=== PATIENT | female | born 1940 | race Caucasian/White ===

== ENCOUNTER 2020-04-12 08:37 | Outpatient (CLI) | payer MEDICARE, SELFPAY ==
[2020-04-12 09:14] LABS: Hematocrit 32.9 % (37.0-47.0); Hemoglobin 9.8 g/dL (12.0-15.0)
[2020-04-12 09:17] LABS: Alanine Aminotransferase 15 U/L (4-35); Albumin Level 3.7 g/dL (3.5-5.1); Alkaline Phosphatase 85 U/L (38-126); Anion Gap 9.8 mmol/L (7-16); Aspartate Amino Transferase 23 U/L (14-36); Bilirubin,Total 0.4 mg/dL (0.2-1.3); Blood Urea Nitrogen 19 mg/dL (7-17); Calcium 8.8 mg/dL (8.4-10.2); Carbon Dioxide 29 mmol/L (22-30); Chloride 106 mmol/L (98-107); Cholesterol 131 mg/dL (0-200); Estimated Glomerular Filt Rate > 60; Glucose 95 mg/dL (65-105); HDL Direct 44 mg/dL; Potassium 3.8 mmol/L (3.4-5.0); Sodium 141 mmol/L (137-145); Triglycerides 76 mg/dL (<150)
[2020-04-12 09:28] LABS: LDL Cholesterol Direct 71 mg/dL
[2020-04-12 09:47] LABS: Thyroid Stimulating Hormone 0.482 uIU/mL (0.465-4.680)
== END 2020-04-12 08:38 | disposition home or self-care (01) ==
PROVIDERS: PCP Internal Medicine; Visit Provider Internal Medicine
DX: R73.09 Other abnormal glucose (principal); I10 Essential (primary) hypertension; D64.9 Anemia, unspecified; E78.2 Mixed hyperlipidemia; R79.89 Other specified abnormal findings of blood chemistry
CPT/HCPCS: 36415; 80053; 80061; 84443; 85014; 85018

== ENCOUNTER 2020-04-13 10:06 | Outpatient (CLI) | payer MEDICARE, SELFPAY ==
[2020-04-13 11:28] LABS: Iron 44 ug/dL (37-170)
[2020-04-13 11:38] LABS: Percent Iron Saturation 11 % (20-50)
== END 2020-04-13 10:07 | disposition home or self-care (01) ==
PROVIDERS: PCP Internal Medicine; Visit Provider Internal Medicine
DX: D64.9 Anemia, unspecified (principal)
CPT/HCPCS: 36415; 83540; 83550

== ENCOUNTER 2020-09-30 14:35 | Outpatient (CLI) | payer MEDICARE, SELFPAY ==
--- NOTE | ~2020-09-30 | XR_ITS ---
EXAMINATION: XR abdomen/kub 1V INDICATION: Gross hematuria TECHNIQUE: Supine views of the abdomen were obtained on 2 radiographs. COMPARISON: CT from today FINDINGS: There is an 11 mm stone in the left kidney lower pole. 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 The bowel gas pattern is normal. There is calcified atherosclerosis. Severe bilateral h ip osteoarthritis is noted. Opacities of the right lung base corresponding to chronic interstitial jassi ng disease on the comparison CT. IMPRESSION: 1. 11 mm stone of the left kidney lower pole. 2. 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 Reviewed, dictated and finalized at location A. OGRAPHY COLORIST
--- NOTE | ~2020-09-30 | CT_ITS ---
EXAMINATION: CT abdomen pelvis wo/w con DATE: 09/30/2020 16:16 INDICATION: Gross hematuria TECHNIQUE: Computed tomography (CT) of the abdomen and pelvis was performed without intravenous contr ast. CT of the abdomen and pelvis was then performed with a total of 82 mL Omnipaque 350 intravenous contrast using a double-bolus technique for simultaneous opacification of the renal parenchyma and re nal collecting system. There was an injector malfunction during the second injection. The dose-length product (DLP) was 1780.89 mGy-cm. Automated exposure control and iterative reconstruction technique were employed. COMPARISON: 02/06/2018 FINDINGS: There is stable chronic interstitial lung disease in the right lung and a pattern of usual interstitial pneumonia. Cardiomegaly is noted. There is calcified coronary artery atherosclerosis The re is dissection of the visualized portion of the distal thoracic aorta and upper abdominal aorta wit h opacification of both lumens. There is a 2 cm rim calcified saccular aneurysm of the left renal art juan m, stable since the comparison examination. Cysts of the liver measure up to 1.5 cm in the right he patic lobe. Punctate calcifications in an otherwise normal spleen likely represent healed granulomato us disease. The gallbladder and adrenal glands are normal. Fatty atrophy in the head of the pancreas is again noted. Cysts of the kidneys measure up to 1.6 cm on the left. There are multiple peripelvic cysts in both kidneys. There is a 1.3 cm nonobstructing stone of the left kidney lower pole. No stone s are identified in the right kidney, ureters, or bladder. There is no hydronephrosis or hydroureter. No suspicious renal or urothelial lesion is identified. There is calcified atherosclerosis of the ao rta and many of the other arteries. No pathologically enlarged abdominal or pelvic lymph nodes are id entified. There is no free intraperitoneal gas or evidence of bowel obstruction. The appendix is norm al. Colonic diverticulosis is present without evidence of diverticulitis. There is a chronic 1.7 x 1. 1 cm soft tissue density which appears to be associated with the anterior third of the vagina/labia m ajora on the right, likely a Bartholin gland cyst. There is severe lumbar spondylosis and severe hip osteoarthritis. IMPRESSION: 1. 1.3 cm nonobstructing stone of the left kidney lower pole. 2. 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 3. 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 Reviewed, dictated and finalized at location A. OTION WRITER IMPRESSION: 1. 1.3 cm nonobstructing stone of the left kidney lower pole. 2. 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 3. 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
[2020-09-30 15:23] LABS: Estimated Glomerular Filt Rate > 60
== END 2020-09-30 14:36 | disposition home or self-care (01) ==
PROVIDERS: PCP Internal Medicine; Visit Provider Urology
DX: R31.0 Gross hematuria (principal); N20.0 Calculus of kidney; I70.1 Atherosclerosis of renal artery
CPT/HCPCS: 74018; 74178; Q9967

== ENCOUNTER 2020-10-13 09:35 | Outpatient (CLI) | payer MEDICARE, SELFPAY ==
[2020-10-13 10:27] LABS: Alanine Aminotransferase 21 U/L (4-35); Albumin Level 3.7 g/dL (3.5-5.1); Alkaline Phosphatase 92 U/L (38-126); Anion Gap 4 mmol/L (8-16); Aspartate Amino Transferase 26 U/L (14-36); Bilirubin,Total 0.4 mg/dL (0.2-1.3); Blood Urea Nitrogen 14 mg/dL (7-17); Calcium 9.2 mg/dL (8.4-10.2); Carbon Dioxide 34 mmol/L (22-30); Chloride 106 mmol/L (98-107); Cholesterol 116 mg/dL (0-200); Estimated Glomerular Filt Rate > 60; Glucose 100 mg/dL (65-105); HDL Direct 40 mg/dL; Potassium 4.1 mmol/L (3.4-5.0); Sodium 144 mmol/L (137-145); Triglycerides 96 mg/dL (<150)
[2020-10-13 10:39] LABS: LDL Cholesterol Direct 52 mg/dL
[2020-10-13 10:58] LABS: Thyroid Stimulating Hormone 0.032 uIU/mL (0.465-4.680)
== END 2020-10-13 09:36 | disposition home or self-care (01) ==
PROVIDERS: PCP Internal Medicine; Visit Provider Nurse Practitioner
DX: E78.5 Hyperlipidemia, unspecified (principal); E03.9 Hypothyroidism, unspecified
CPT/HCPCS: 36415; 80053; 80061; 84443

== ENCOUNTER 2020-10-26 15:19 | Outpatient (CLI) | payer MEDICARE, SELFPAY ==
--- NOTE | ~2020-10-26 | XR_ITS ---
XR chest 2V DATE: 10/26/2020 15:58 INDICATION: Fever, shortness of breath. TECHNIQUE: PA and lateral views COMPARISON: 01/30/2017 PA and lateral chest FINDINGS: There is chronic elevation of the right leaf of the diaphragm. There is right basilar atele ctasis/infiltrate. The lungs otherwise are clear. Moderate hyperinflation of the left lung. Cardiomegaly. Probable septal closure device overlying the cardiac silhouette. Aortic calcification, ectasia and unfolding. No hilar or mediastinal enlargement is evident. Diffuse osteopenia. IMPRESSION: Chronic elevation right leaf of diaphragm and right basilar infiltrate and/atelectasis Cardiomegaly; septal closure device Aortic calcification, ectasia and unfolding Diffuse osteopenia Reviewed, dictated and finalized at location B. SUPPLY WORKER IMPRESSION: Chronic elevation right leaf of diaphragm and right basilar infiltr ate and/atelectasis Cardiomegaly; septal closure device Aortic calcification, ectasia and unfolding Diffuse osteopenia
== END 2020-10-26 15:20 | disposition home or self-care (01) ==
LOC: ANHIMG 15:27
PROVIDERS: PCP Internal Medicine; Visit Provider Internal Medicine
DX: R50.9 Fever, unspecified (principal); R06.02 Shortness of breath; J44.9 Chronic obstructive pulmonary disease, unspecified; I10 Essential (primary) hypertension; M85.88 Other specified disorders of bone density and structure, other site; I51.7 Cardiomegaly; I70.0 Atherosclerosis of aorta
CPT/HCPCS: 71046; 87077; 87086; 87088; 87186

== ENCOUNTER 2020-11-04 10:29 | Outpatient (CLI) | payer MEDICARE, SELFPAY ==
--- NOTE | ~2020-11-04 | US_ITS ---
EXAMINATION: US thyroid DATE: 11/04/2020 11:05 INDICATION: Renal nontoxic right thyroid nodule TECHNIQUE: Multiple ultrasound images of the thyroid were obtained. COMPARISON: None. FINDINGS: The right thyroid lobe measures 5.1 x 2.2 x 2.3 cm. The left thyroid lobe measures 4.5 x 2.2 x 2.2 c m. 2.5 cm solid wider than tall heterogeneously hypoechoic right thyroid nodule with smooth well-def ined margins and without echogenic foci. (TI-RADS 4, moderately suspicious , FNA if >=1.5 cm, annual followup is >1 cm). Similar-appearing 1.8 cm TI RADS 4 nodule in the left thyroid lobe. There are als o a few benign anechoic cystic nodules in the left thyroid lobe, the largest measuring 1.8 cm maximal diameter. There is heterogeneous echogenicity with coarsened echotexture throughout the thyroid. IMPRESSION: 1. Multiple thyroid nodules including a pair of TI RADS 4 solid nodules measuring 2.5 cm on the right and 1.8 cm on the left, both meeting consensus criteria for ultrasound-guided biopsy which would be recommended.. Reviewed, dictated and finalized at location A. UCT FINISHER IMPRESSION: 1. Multiple thyroid nodules including a pair of TI RADS 4 solid nodules measuri ng 2.5 cm on the right and 1.8 cm on the left, both meeting consensus criteria for ultrasound-guided biopsy which would be recommended..
== END 2020-11-04 10:30 | disposition home or self-care (01) ==
PROVIDERS: PCP Internal Medicine; Visit Provider Internal Medicine
DX: N39.0 Urinary tract infection, site not specified (principal); E04.2 Nontoxic multinodular goiter
CPT/HCPCS: 76536

== ENCOUNTER 2020-11-24 21:08 | Emergency (ER) | payer MEDICARE, SELFPAY ==
--- NOTE | ~2020-11-24 | CT_ITS ---
EXAMINATION: CT brain wo con DATE: 11/24/2020 22:11 INDICATION: Head injury TECHNIQUE: Computed tomography (CT) of the head was performed without intravenous contrast. The mA wa s adjusted according to patient size. Iterative reconstruction technique was employed. Exam dose: 68 1.00 mGy-cm total exam DLP. COMPARISON: 09/21/2016 CT brain 09/22/2016 MRI brain FINDINGS: The examination is limited due to extensive streak motion artifact. Bilateral vertebral artery and bilateral carotid siphon internal carotid artery calcifications. There is nonspecific diminished attenuation of the subcortical and periventricular cerebral white mat ter, likely due to chronic small vessel ischemic changes. No intracranial mass lesion or hemorrhage, midline shift or mass effect is evident. No apparent subdu ral or epidural hematoma. No fracture or bone destruction of the cranial vault is detected. There is minimal soft tissue thickening of the right maxillary sinus and the ethmoid air cells. IMPRESSION: Limited examination due to motion artifact Reviewed, dictated and finalized at Location A. Reviewed, dictated and finalized at location A.
--- NOTE | ~2020-11-24 | CT_ITS ---
EXAMINATION: Pa Chakraborty MD DATE: 11/25/2020 00:28 INDICATION: Aortic dissection. TECHNIQUE: Computed tomographic angiography (CTA) of the chest, abdomen, and pelvis was performed wit hout and with 100 mL Omnipaque-350 intravenous contrast. Automated exposure control and iterative rec onstruction technique were employed. The dose-length product was 861.56 mGy-cm. Maximum intensity pro jection 3D-reconstructions of the aorta and other arteries were constructed by the technologist on a separate workstation. COMPARISON: CT chest, abdomen, and pelvis 11/24/2020, CT abdomen and pelvis 09/30/2020, chest CT 01/13/20 FINDINGS: CHEST CTA: There is mild atelectasis in the left. There are patchy airspace and groundglass opacities in right l coleen with volume loss. There is honeycombing in right lower lobe. There is a trace right pleural effus ion. Cardiomegaly is noted. 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 The central pulmonary arteries are enlarged, consistent pu lmonary arterial hypertension. There is ectasia of ascending aorta measuring 4.7 cm. There is a chron ic dissection of descending thoracic aorta. There is a fusiform aneurysm of proximal descending aorta measuring 5.0 cm. There is severe mid thoracic spondylosis. ABDOMEN AND PELVIS CTA: There is a 15 mm cyst in the liver. Calcifications in the spleen are consistent with old granulomatou s disease. The gallbladder, pancreas, and adrenal glands are normal. There is cortical thinning of th e kidneys. There are peripelvic cysts in the kidneys. There is a 1.8 cm peripherally calcified saccul ar aneurysm of left renal artery, stable from 01/12/10. There is a 9 mm stone in left kidney. There is diverticulosis of the colon without evidence of diverticulitis. The appendix is normal. There are no dilated loops of bowel. There are no pathologically enlarged lymph nodes. There is no free intraperit clark fluid. There is severe lower lumbar spondylosis. IMPRESSION: 1. Chronic dissection of descending thoracic aorta. Fusiform thoracic aortic aneurysm measuring up to 5.0 cm in proximal descending aorta. 2. Diffuse right lung disease, likely a combination of pneumonia and chronic lung disease. Reviewed, dictated and finalized at location A. IMPRESSION: 1. Chronic dissection of descending thoracic aorta. Fusiform thoracic aortic an eurysm measuring up to 5.0 cm in proximal descending aorta. 2. Diffuse right lung disease, likely a combination of pneumonia and chronic jassi ng disease.
--- NOTE | ~2020-11-24 | CT_ITS ---
EXAMINATION: CT chest abdomen pelvis wo con DATE: 11/24/2020 22:11 INDICATION: Fall. TECHNIQUE: Computed tomography (CT) of the chest, abdomen, and pelvis was performed without intraveno us contrast. Automated exposure control and iterative reconstruction technique were employed. Exam do se: 997.80 mGy-cm total exam DLP. COMPARISON: None FINDINGS: CHEST CT: There is cardiomegaly. No pericardial effusion. There is minimal right pleural effusion. There is thoracic aortic aneurysm, measuring up to 5.0 cm at the ascending aorta, 4.4 cm diameter at the distal aortic arch, 3.3 cm at the descending aorta. There is an intimal flap, consistent with ao rtic dissection which appears to originate just beyond the left subclavian artery (likely type B aort ic dissection). There is patchy infiltrate of the right upper and lower lobes and atelectasis/consolidation in the mi ddle lobe. The left lung is clear of infiltrate or consolidation. ABDOMEN/PELVIS CT: Approximately 12 mm and 15 mm probable hepatic cysts. The gallbladder is present. No bile duct dilatation. No pancreatic mass lesion location is evident. N ormal splenic size The adrenal glands are unremarkable. Approximately 1.9 cm calcified left renal artery aneurysm. Approximately 6.4 x 12 mm left renal calculus with attenuation of 1300 Hounsfield units. Moderate lef t and mild right hydronephrosis. The urinary bladder is unremarkable. Uterus and adnexal areas are un remarkable. Calcification, aorta and iliac arteries. Diverticulosis of the sigmoid colon; no CT evidence of diverticulitis. No bowel obstruction or intrap eritoneal free air is evident. Thoracic kyphosis. No suspicious osteolytic or osteoblastic lesions. Moderately prominent degenerative disc disease at L4-5 and severe degenerative disease at L5-S1. Osteoarthritic change at both hips. The urinary bladder is relatively is unremarkable IMPRESSION: Probable type B aortic dissection. A 5 cm thoracic aortic aneurysm. Extensive right-sided pulmonary infiltrate 1.9 cm calcified left renal artery aneurysm Left nephrolithiasis Bilateral hydronephrosis Diverticulosis of the colon Cardiomegaly Reviewed, dictated and finalized at Location A. Reviewed, dictated and finalized at location A. IMPRESSION: Probable type B aortic dissection. A 5 cm thoracic aortic aneurysm . Extensive right-sided pulmonary infiltrate 1.9 cm calcified left renal artery aneurysm Left nephrolithiasis Bilateral hydronephrosis Diverticulosis of the colon Cardiomegaly
--- NOTE | ~2020-11-24 | CT_ITS ---
EXAMINATION: CT cervical spine wo con DATE: 11/24/2020 22:11 INDICATION: Neck pain after fall TECHNIQUE: Computed tomography (CT) of the cervical spine was performed without intravenous contrast. Automated exposure control and iterative reconstruction technique were employed. Exam dose: 258.02 mGy-cm total exam DLP. 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 There is moderate degenerative disc disease at C4-5. There is severe degenerative disc disease at C5-6. There is 1.9 mm anterolisthesis at C6-7 and C7-T1. No fracture or dislocation or prevertebral soft tissue swelling. There is prominent degenerative change of the apophyseal joints. No fracture or dislocation or prevertebral soft tissue swelling. 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 Reviewed, dictated and finalized at location A.
[2020-11-24 21:10] VITALS: BP 85/56; PULSE 105; RESP 38; TEMP 36.4; O2SAT 100
--- NOTE | 2020-11-24 21:13 | ECG_ITS ---
Measurements Intervals [place] Rate: 98 P: NV: 0 QRS: 28 QRSD: 101 T: 32 QT: 364 QTc: 465 Interpretive Statements MULTIFOCAL ATRIAL TACHYCARDIA ATRIAL PREMATURE COMPLEXES INCOMPLETE RIGHT BUNDLE BRANCH BLOCK LOW QRS VOLTAGE IN PRECORDIAL LEADS NONSPECIFIC ST & T-WAVE ABNORMALITY- ANTEROLAT/INF LEADS BASELINE ARTIFACT- I, II, III, AVR, AVL, AVF, V3-V6 ABNORMAL ECG Electronically Signed On 11-25-2020 7:04:51 CDT by Sherwin Soto D.O.
[2020-11-24 21:31] LABS: Basophils Absolute Auto 0.1 K/mm3 (0.0-0.1); Basophils Percent Auto 0.3 % (0.2-1.2); Hematocrit 26.6 % (37.0-47.0); Hemoglobin 7.8 g/dL (12.0-15.0); Immature Granulocyte Absolute 1.19 K/mm3 (0.00-0.031); Immature Granulocyte Percent A 4.2 % (0-0.5); Lymphocytes Absolute Auto 0.52 K/mm3 (0.9-3.2); Lymphocytes Percent Auto 1.8 % (18.3-44.2); Mean Corpuscular HGB Conc 29.3 g/dl (32-36); Mean Corpuscular Hemoglobin 27.1 pg (26-34); Mean Corpuscular Volume 92.4 fl (80-100); Mean Platelet Volume 8.8 fl (7.4-10.4); Monocytes Absolute Auto 0.5 K/mm3 (0.1-0.6); Monocytes Percent Auto 1.7 % (2.6-8.5); Neutrophils Absolute Auto 26.4 K/mm3 (1.3-6.7); Nucleated Red Blood Cells Absolute Auto 0.1 K/mm3 (0.0-0.012); Nucleated Red Blood Cells Perc 0.2 % (0.0-0.2); Platelet Count Result 193 k/mm3 (150-375); Red Blood Count 2.88 M/mm3 (4.2-5.4); Red Cell Distribution Width 16.2 % (11.5-14.5); White Blood Count 28.7 K/mm3 (4.5-10.0)
[2020-11-24 21:41] LABS: INR 1.3; Prothrombin Time 16.6 Seconds (11.1-14.7)
[2020-11-24 21:42] LABS: Partial Thromboplastin Time 39.6 SECONDS (22.3-36.8)
[2020-11-24] MEDS: SODIUM CHLORIDE 0.9% IV 1,000 ML 999 ML IV CONT (21:42)
[2020-11-24 21:44] LABS: Hypochromasia 1+ (NORMAL); Ovalocytes 1+ (NORMAL); Platelet Estimate Adequate (Adequate)
[2020-11-24 21:46] LABS: Lactic Acid Reflex 3.8 mmol/L (0.7-2.1)
[2020-11-24 21:53] LABS: Creatine Kinase 2635 U/L (30-135)
[2020-11-24 22:21] LABS: Alveolar/Arterial O2 Gradient 67.7 mmHg; Base Excess ABG -5.1 mEq/l (+/-2.0); Fractional Inspired Oxygen 40 %; HCO3 ABG 21.5 mEq/l (22.0-26.0); Oxygen Content ABG 13.8 %vol (16.0-22.0); Oxygen Saturation ABG 98.9 % (95.0-100.0); Oxyhemoglobin 97.7 % THb (90.0-100.0); PCO2 ABG 46.9 mmHg (35.0-45.0); PO2 ABG 163.6 mmHg (80.0-100.0); PO2 FiO2 Ratio Arterial Blood 4.09 %; Total Hemoglobin 9.8 g/dL (12.0-18.0)
[2020-11-24 22:22] LABS: pH ABG 7.279 (7.350-7.450)
[2020-11-24 22:23] LABS: Device NASAL CANNULA; Modified Allen's Test Pass; Site Drawn RIGHT RADIAL
[2020-11-24 23:13] LABS: Add Urine Microscopic? YES; Appearance Urine Cloudy (Clear); Bacteria Urine Trace /hpf; Bilirubin Urine Negative (Negative); Blood Urine 2+ (Negative); Color Urine Yellow (Yellow); Glucose Urine UA Negative (Negative); Ketones Urine Negative (Negative); Leukocyte Esterase Ur 3+ LEU/UL (Negative); Mucus Urine Rare /lpf; Nitrate Urine Negative (Negative); Protein Urine 2+ mg/dL (Negative); RBC Urine >75 /hpf (0-2); Squamous Epithelial Cell Urine Few /hpf (Few); Urobilinogen Urine Negative mg/dL (<2.0); WBC Clumps Urine Present /HPF; WBC Urine >75 /hpf
[2020-11-24 23:44] LABS: Alanine Aminotransferase 26 U/L (4-35); Albumin Level 2.8 g/dL (3.5-5.1); Alkaline Phosphatase 83 U/L (38-126); Anion Gap 7 mmol/L (8-16); Aspartate Amino Transferase 69 U/L (14-36); Bilirubin,Total 0.9 mg/dL (0.2-1.3); Blood Urea Nitrogen 22 mg/dL (7-17); Calcium 7.9 mg/dL (8.4-10.2); Carbon Dioxide 22 mmol/L (22-30); Chloride 110 mmol/L (98-107); Estimated CRCL calculation 32 ml/min; Estimated Glomerular Filt Rate 53; Glucose 106 mg/dL (65-105); Lipase 26 U/L (23-300); Magnesium 1.6 mg/dL (1.6-2.3); Potassium 3.7 mmol/L (3.4-5.0); Sodium 139 mmol/L (137-145)
[2020-11-24 23:56] VITALS: BP 153/103; PULSE 88; RESP 26; O2SAT 96
[2020-11-25 00:29] LABS: Reflex Lactic Acid Yes or No Add Lactic
--- NOTE | 2020-11-25 00:53 | ED.GENADULT ---
HPI - General Adult General Chief complaint: Fall Stated complaint: glf [id number] Time Seen by Provider: 11/24/20 21:12 History of Present Illness HPI narrative: Patient is a 80-year-old female who presents to emergency department with chief complaint of fall. Patient states this morning around 8:00 she tripped and fell and landed on the floor patient states she was unable to get up after she fell. Patient laid on the ground until approximately 8 PM tonight of which time she was found and EMS was called. Patient reports that she has some abdominal discomfort and pain in her right shoulder. Patient denies chest pain Related Data Home Medications Medication Instructions Recorded Confirmed albuterol sulfate 2.5 mg INHALATION Q4H PRN 09/03/19 10/18/20 aspirin 81 mg chewable tablet 81 mg PO DAILY 09/03/19 10/18/20 fluticasone fur. 200 mcg-umeclid 1 inh INHALATION DAILY 07/15/20 10/18/20 62.5 mcg-vilant 25 mcg inhalat.powder omeprazole 20 mg capsule,delayed 20 mg PO DAILY 07/15/20 10/18/20 release Allergies Allergy/AdvReac Type Severity Reaction Status Date / Time codeine Allergy Unknown vomiting Verified 10/27/20 09:07 meperidine Allergy Unknown vomiting Verified 07/15/20 10:10 [facility] Past Medical History Medical History Abnormal TSH CAD (coronary artery disease) Family history of aortic dissection Hematuria Hx of ventricular septal defect Surgical History Surgical History History of reduction surgery of right breast History of tonsillectomy Social History Social History Smoking status: Never smoker Alcohol intake: never Course Vital Signs Vital signs: Vital Signs Temperature 36.4 C 11/24/20 21:10 Pulse Rate 105 H 11/24/20 21:10 Respiratory Rate 38 H 11/24/20 21:10 Blood Pressure 85/56 L 11/24/20 21:10 Pulse Oximetry 100 11/24/20 21:10 Temperature 36.4 C 11/24/20 21:10 Pulse Rate 99 11/25/20 01:41 Respiratory Rate 20 11/25/20 01:41 Blood Pressure 98/58 L 11/25/20 01:41 Pulse Oximetry 96 11/25/20 01:41 Transfer Transfered to: [facility] Transportation: ALS Transfer rationale: Type B aortic dissection Accepting physician: Patricia Medical Decision Making Vital Signs Vital Signs: Vital Signs Temperature 36.4 C 11/24/20 21:10 Pulse Rate 105 H 11/24/20 21:10 Respiratory Rate 38 H 11/24/20 21:10 Blood Pressure 85/56 L 11/24/20 21:10 Pulse Oximetry 100 11/24/20 21:10 Temperature 36.4 C 11/24/20 21:10 Pulse Rate 99 11/25/20 01:41 Respiratory Rate 20 11/25/20 01:41 Blood Pressure 98/58 L 11/25/20 01:41 Pulse Oximetry 96 11/25/20 01:41 Lab Data Result diagrams: 11/24/20 21:25 11/24/20 21:25 Labs: Lab Results 11/24/20 11/24/20 11/24/20 Range/Units 21:25 21:25 21:25 WBC 28.7 H (4.5-10.0) K/mm3 RBC 2.88 L (4.2-5.4) M/mm3 Hgb 7.8 L (12.0-15.0) g/dL Hct 26.6 L (37.0-47.0) % MCV 92.4 (80-100) fl MCH 27.1 (26-34) pg MCHC 29.3 L (32-36) g/dl RDW 16.2 H (11.5-14.5) % Plt Count 193 (150-375) k/mm3 MPV 8.8 (7.4-10.4) fl Immature Gran % (Auto) 4.2 H (0-0.5) % Neut % (Auto) 92.0 H (45.5-73.1) % Lymph % (Auto) 1.8 L (18.3-44.2) % Irwin % (Auto) 1.7 L (2.6-8.5) % Eos % (Auto) 0.0 (0-4.4) % Baso % (Auto) 0.3 (0.2-1.2) % Lymph # (Auto) 0.52 L (0.9-3.2) K/mm3 Irwin # (Auto) 0.5 (0.1-0.6) K/mm3 Eos # (Auto) 0.0 (0-0.3) K/mm3 Baso # (Auto) 0.1 (0.0-0.1) K/mm3 Abs Immat Gran (auto) 1.19 H (0.00-0.031) K/mm3 Absolute Neuts (auto) 26.4 H (1.3-6.7) K/mm3 Absolute Nucleated RBC 0.1 H (0.0-0.012) K/mm3 Nucleated RBC % 0.2 (0.0-0.2) % Platelet Estimate Adequate (Adequate) Hypochromasia 1+ (NORMAL)
[2020-11-25 01:41] VITALS: BP 98/58; PULSE 99; RESP 20; O2SAT 96
[2020-11-25 01:48] LABS: Lactic Acid 2.3 mmol/L (0.7-2.1)
--- NOTE | 2020-11-25 02:16 | PC.NURSE ---
contacted [facility] and [facility]mael to take patient from our er to [facility]. both companies declined. Dr. Clark asked for lights and sirens to be called with miguel. eta 5 minutes
[2020-11-25 02:46] VITALS: BP 89/64; PULSE 92; RESP 26; TEMP 36.6; O2SAT 96
== END 2020-11-25 02:48 | disposition short-term general hospital (02) ==
PROVIDERS: Emergency Provider Emergency Medicine; PCP Internal Medicine
DX: T79.6XXA Traumatic ischemia of muscle, initial encounter (principal); I71.01 Dissection of thoracic aorta; R79.89 Other specified abnormal findings of blood chemistry; I25.10 Atherosclerotic heart disease of native coronary artery without angina pectoris; W01.0XXA Fall on same level from slipping, tripping and stumbling without subsequent striking against object, initial encounter; Z79.82 Long term (current) use of aspirin
CPT/HCPCS: 36415; 36600; 70450; 71250; 71275; 72125; 74174; 74176; 80053; 81001; 82550; 82805; 83605; 83690; 83735; 84484; 85025; 85610; 85730; 87077; 87086; 87088; 87186; 93005; 96360; 99291; J7030; Q9967

== ENCOUNTER 2021-01-16 08:23 | Inpatient (IN) | payer MEDICARE, SELFPAY ==
[2021-01-16] VITALS (23 sets, daily range): BP systolic 92–126; BP diastolic 45–92; PULSE 88–143; RESP 14–45; TEMP 36.2–36.6; O2SAT 92–100; BMI 29.2
--- NOTE | ~2021-01-16 | XR_ITS ---
EXAMINATION: XR chest 1V portable DATE: 01/16/2021 08:54 INDICATION: Shortness of breath. TECHNIQUE: A single frontal view of the chest was obtained. COMPARISON: Chest 2 views 10/26/2020, chest CT 11/25/2020, chest CT 01/12/2010 FINDINGS: There is chronic elevation of right hemidiaphragm. There are airspace and interstitial opac ities in all right lung zones. There are airspace opacities in left mid and lower lung zones. There i s a small pleural effusion. No pneumothorax. Cardiomegaly is noted. There is an interatrial closure d evice. There is chronic enlargement of the aortic arch correlating with a dissecting aneurysm of desc ending aorta on the prior CT. IMPRESSION: 1. Small right lung with worsened diffuse right lung disease, consistent with pulmonary edema versus pneumonia superimposed on chronic lung disease. 2. Worsened airspace opacities in left mid and lower lung zones, consistent with pulmonary edema vers us pneumonia. 3. Small left pleural effusion. 4. Cardiomegaly. 5. 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 Reviewed, dictated and finalized at location B. IMPRESSION: 1. Small right lung with worsened diffuse right lung disease, consistent with p ulmonary edema versus pneumonia superimposed on chronic lung disease. 2. Worsened airspace opacities in left mid and lower lung zones, consistent wit h pulmonary edema versus pneumonia. 3. Small left pleural effusion. 4. Cardiomegaly. 5. 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
--- NOTE | ~2021-01-16 | XR_ITS ---
EXAMINATION: XR barium swallow modified DATE: 01/17/2021 14:33 INDICATION: Dysphagia. TECHNIQUE: The patient was given barium-containing material of multiple consistencies to swallow by erik galeana speech pathologist while I performed fluoroscopy. Dose-area product was 1.3 Gy-cm2. 3.4 minutes fluoroscopy time FINDINGS: Oral Stage: Within functional limits Pharyngeal Phase: Within functional limits Cervical/Esophageal Stage: Within functional limits IMPRESSION: Modified esophagram findings as above. Please refer to the speech therapy report [facility] recommendations. Reviewed, dictated and finalized at Location [facility]. Reviewed, dictated and finalized at location A. IMPRESSION: Modified esophagram findings as above. Please refer to the speech t herapy report for specific recommendations.
--- NOTE | 2021-01-16 08:29 | ECG_ITS ---
Measurements Intervals [place] Rate: 122 P: MN: 0 QRS: 45 QRSD: 90 T: 0 QT: 188 QTc: 268 Interpretive Statements ATRIAL FIBRILLATION WITH RAPID VENTRICULAR RESPONSE NONSPECIFIC ST & T-WAVE ABNORMALITY- ANTEROLAT/INF LEADS ABNORMAL ECG Electronically Signed On 01-16-2021 8:41:43 CDT by Sherwin Soto D.O.
[2021-01-16 08:39] LABS: Alveolar/Arterial O2 Gradient 322.4 mmHg; Base Excess ABG 3.2 mEq/l (+/-2.0); Device NON-INVASIVE VENT; Fractional Inspired Oxygen 80 %; HCO3 ABG 29.2 mEq/l (22.0-26.0); Modified Allen's Test Pass; Oxygen Content ABG 13.1 %vol (16.0-22.0); Oxygen Saturation ABG 99.3 % (95.0-100.0); PCO2 ABG 52.2 mmHg (35.0-45.0); PO2 ABG 193.2 mmHg (80.0-100.0); PO2 FiO2 Ratio Arterial Blood 2.41 %; Site Drawn LEFT RADIAL; Total Hemoglobin 9.2 g/dL (12.0-18.0); pH ABG 7.366 (7.350-7.450)
[2021-01-16 08:40] LABS: Non-Invasive Expiratory Pressure 6 CMH2O; Non-Invasive Inspiratory Pressure 12 CMH2O; Non-Invasive Vent Rate 4 /MIN
[2021-01-16 08:55] LABS: Basophils Percent Auto 0.3 % (0.2-1.2); Eosinophils Percent Auto 0.4 % (0-4.4); Hematocrit 30.1 % (37.0-47.0); Hemoglobin 8.7 g/dL (12.0-15.0); Immature Granulocyte Absolute 0.11 K/mm3 (0.00-0.031); Lymphocytes Absolute Auto 0.92 K/mm3 (0.9-3.2); Lymphocytes Percent Auto 8.4 % (18.3-44.2); Mean Corpuscular HGB Conc 28.9 g/dl (32-36); Mean Corpuscular Hemoglobin 26.9 pg (26-34); Mean Corpuscular Volume 93.2 fl (80-100); Mean Platelet Volume 9.1 fl (7.4-10.4); Monocytes Absolute Auto 0.7 K/mm3 (0.1-0.6); Neutrophils Absolute Auto 9.2 K/mm3 (1.3-6.7); Neutrophils Percent Auto 83.9 % (45.5-73.1); Platelet Count Result 503 k/mm3 (150-375); Red Blood Count 3.23 M/mm3 (4.2-5.4); Red Cell Distribution Width 17.1 % (11.5-14.5); White Blood Count 10.9 K/mm3 (4.5-10.0)
[2021-01-16 09:05] LABS: Lactic Acid Reflex 1.9 mmol/L (0.7-2.1)
[2021-01-16 09:06] LABS: INR 2.1
[2021-01-16 09:07] LABS: Partial Thromboplastin Time 43.2 SECONDS (22.3-36.8)
[2021-01-16 09:09] LABS: Anion Gap 4 mmol/L (8-16); Blood Urea Nitrogen 23 mg/dL (7-17); Calcium 9.2 mg/dL (8.4-10.2); Carbon Dioxide 39 mmol/L (22-30); Chloride 100 mmol/L (98-107); Estimated Glomerular Filt Rate > 60; Glucose 113 mg/dL (65-105); Potassium 3.1 mmol/L (3.4-5.0); Sodium 143 mmol/L (137-145)
[2021-01-16 09:12] LABS: Platelet Estimate Increased (Adequate)
[2021-01-16 09:13] LABS: Polychromasia 1+ (NORMAL)
[2021-01-16 09:14] LABS: Anisocytosis 1+ (NORMAL); Burr Cells 1+ (NORMAL); Hypochromasia 2+ (NORMAL); Ovalocytes 2+ (NORMAL); Stomatocytes 1+ (NORMAL); Target Cells 1+ (NORMAL)
[2021-01-16 09:16] LABS: NT Pro B Type Natriuretic Pept 8360 pg/mL (5-100)
[2021-01-16] MEDS: dilTIAZem HCl INJ 25 MG/5 ML VIAL 10 MG IV PUSH (09:24)
[2021-01-16] MEDS: FUROSEMIDE INJ 40 MG/4 ML VIAL IV PUSH ×2 (09:36→18:51)
--- NOTE | 2021-01-16 09:42 | ED.SOB ---
HPI - SOB/Dyspnea General Chief Complaint: Shortness of Breath/Dyspnea Stated Complaint: sob History of Present Illness HPI Narrative: Patient is an 80-year-old female who presents ER with respiratory distress. Oxygen saturation in the 70s. Patient with recent diagnosis of aortic dissection and atrial fibrillation. Wears O2 chronically at 2 L. Patient unable to give history due to respiratory distress. Related Data Home Medications Medication Instructions Recorded Confirmed apixaban 5 mg PO BID 01/16/21 01/20/21 ezetimibe 10 mg PO DAILY 01/16/21 01/20/21 lgtjoepjrlu-putyozthr-[id number] 1 inh INHALATION DAILY 01/16/21 01/20/21 [Trelegy Ellipta] metoprolol tartrate 100 mg PO Q12H 01/16/21 01/20/21 Allergies Allergy/AdvReac Type Severity Reaction Status Date / Time codeine AdvReac Unknown vomiting Verified 01/20/21 18:31 meperidine AdvReac Unknown vomiting Verified 01/20/21 18:31 Review of Systems Review of Systems: ROS unobtainable: Yes unobtainable due to medical condition [facility] Past Medical History Medical History Abnormal TSH Atrial fibrillation with RVR CAD (coronary artery disease) Chronic respiratory failure with hypoxia and hypercapnia Congestive heart failure Dissecting aneurysm 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 Essential hypertension Family history of aortic dissection Hematuria Hx of ventricular septal defect Hyperlipidemia TIA (transient ischemic attack) Surgical History Surgical History H/O bilateral cataract extraction H/O tubal ligation History of reduction surgery of right breast History of tonsillectomy Family History Family History Father Dissecting aneurysm Social History Social History (Updated 01/20/21 @ 19:25 by Davey Go MD) Social History: Lived at home until about 2 mo ago. Was in SNF after that. She has 2 daughters and a son. None has POA, but they are all in agreement with their mother's wishes for comfort care. . 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 Smoking status: Never smoker Alcohol intake: never Substance use: never Occupation/Education: retired Gender identity (if verbalized by the patient): Female Spiritual care concerns: No Exam Narrative: Exam Narrative: GENERAL: Chronically ill-appearing, well-nourished, and in severe distress. HEAD: Normocephalic, atraumatic. ENT: Mucous membranes moist. CHEST: Diffuse crackles. Patient in respiratory distress. HEART: Tachycardic and regular regular. Normal peripheral pulses. ABDOMEN: Soft, nontender, nondistended. EXTREMITIES: Normal range of motion. 4+ edema. SKIN: Warm, dry, no rash. NEURO: Awake and alert, follows commands.. PSYCH: Normal mood and affect. Course Course Emergency Course: Cardizem drip for A. fib. BiPAP respiratory distress. Admit to hospitalist service. Vital Signs Vital signs: Vital Signs Temperature 97.8 F 01/16/21 08:22 Pulse Rate 122 H 01/16/21 08:22 Respiratory Rate 16 01/16/21 08:22 Blood Pressure 124/92 H 01/16/21 08:22 Pulse Oximetry 100 01/16/21 08:22 Temperature 97.3 F L 01/20/21 15:49 Pulse Rate 128 H 01/20/21 16:00 Respiratory Rate 26 H 01/20/21 15:49 Blood Pressure 110/88 01/20/21 15:49 Pulse Oximetry 89 L 01/20/21 15:49 MDM - SOB/Dyspnea Lab Data Result diagrams: 01/20/21 05:10 01/20/21 05:10 Labs: Lab Results 01/16/21 01/16/21 01/16/21 Range/Units 08:37 08:37 08:37 WBC 10.9 H (4.5-10.0) K/mm3 RBC 3.23 L (4.2-5.4) M/mm3 Hgb 8.7 L (12.0-15.0) g/dL Hct 30.1 L (37.0-47.0) % MCV 93.2 (80-100) fl MCH 26.9 (26-34) pg MCHC 28.9 L (32-36) g/dl RDW 17.1 H (11.5-14.5) % Plt Count 503 H D (150-375) k/mm3 MPV 9.1 (7.4-10.4) fl
[2021-01-16 10:14] LABS: Add Urine Microscopic? YES; Appearance Urine Cloudy (Clear); Bacteria Urine 1+ /hpf; Bilirubin Urine Negative (Negative); Blood Urine 3+ (Negative); Color Urine Yellow (Yellow); Glucose Urine UA Negative (Negative); Ketones Urine Negative (Negative); Leukocyte Esterase Ur 2+ LEU/UL (Negative); Mucus Urine Rare /lpf; Nitrate Urine Negative (Negative); Protein Urine 2+ mg/dL (Negative); RBC Urine >75 /hpf (0-2); Specific Grav Ur 1.013 (1.001-1.035); Squamous Epithelial Cell Urine Rare /hpf (Few); Urobilinogen Urine Negative mg/dL (<2.0); WBC Urine 51-75 /hpf
--- NOTE | 2021-01-16 13:37 | ADMGEN ---
This patient, Domi Johnston, was admitted to IMU Room 231-01 on 01/16/21 at 1240. Patient/family oriented to hospital policies and general routines including ID bracelet, bed and alarms, visiting hours, pain management, procedures, bathroom and other care routines, personal items, smoking policy, room service/diet, and visiting hours. Information on how to activate the Rapid Response Team has been discussed. Patient/Family are encouraged to report perceived risks to care and to ask questions if they do not understand what they are told or what they should do.
[2021-01-16 14:18] LABS: Alveolar/Arterial O2 Gradient 166.4 mmHg; Base Excess ABG 11.2 mEq/l (+/-2.0); Device NON-INVASIVE VENT; Fractional Inspired Oxygen 60 %; HCO3 ABG 37.3 mEq/l (22.0-26.0); Modified Allen's Test Pass; Non-Invasive Expiratory Pressure 5 CMH2O; Non-Invasive Inspiratory Pressure 14 CMH2O; Non-Invasive Vent Rate 4 /MIN; Oxygen Content ABG 12.4 %vol (16.0-22.0); Oxygen Saturation ABG 99.3 % (95.0-100.0); Oxyhemoglobin 97.7 % THb (90.0-100.0); PCO2 ABG 59.3 mmHg (35.0-45.0); PO2 ABG 196.2 mmHg (80.0-100.0); PO2 FiO2 Ratio Arterial Blood 3.27 %; Site Drawn LEFT RADIAL; Total Hemoglobin 8.7 g/dL (12.0-18.0); pH ABG 7.416 (7.350-7.450)
--- NOTE | 2021-01-16 15:11 | PM.IMHP ---
H&P: HPI History of Present Illness Date/Time: 01/16/21 15:11 this is an 80-year-old female patient who [facility]. The patient was complaining of shortness of breath today. She has a history of COPD, CHF and atrial fibrillation. The son is at the bedside and stated that the patient was at [facility] last month for possible dissecting aortic aneurysm. The patient developed atrial fibrillation at that time and had been placed on metoprolol and Eliquis. The patient had been living at home and was pretty independent until November 24 when she had a fall and had laid on the floor all day. At that time she came here and was felt that the patient had at dissecting aneurysm and was sent to [facility] and was told that sealed itself. However the patient is a DNR. The patient is chronically on oxygen believe it 2 L per nasal cannula. Here and was placed on a Cardizem drip. The patient was also found to have a UTI. Her chest x-ray from today was read as small right lung with worsened diffuse right lung disease, consistent with pulmonary edema versus pneumonia superimposed on chronic lung disease. Worsened airspace opacities in the left mid and lower lung zones consistent with pulmonary edema versus pneumonia. Small left pleural effusion. Cardiomegaly. 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 The patient is moaning in complain complaining of some bladder spasms and pain over her suprapubic area. The patient was given a dose of Lasix in the emergency room as well as Rocephin. The patient was placed on a BiPAP for her respiratory distress Her pH was normal however her CO to is 52.2 and 59.3. The son is at the bedside. The patient is being admitted to inpatient services on the date of service of 01/16/2021. Chief Complaint: Shortness of breath Review of Systems Review of Systems: Narrative: The son is at the bedside answering questions. The patient is moaning in grabbing her suprapubic area when she moans. ROS unobtainable: Yes unobtainable due to mental status Constitutional: Constitutional: Reports as per HPI and Reports no additional constitutional complaints Eyes: Eyes: Reports as per HPI and Reports no additional eye complaints ENT: Reports system reviewed and no additional complaints, except as documented and Reports Normal hearing present Cardiovascular: Cardiovascular: Reports no additional cardiovascular complaints Respiratory: Respiratory: Reports no additional respiratory complaints and Reports no additional respiratory complaints Gastrointestinal: Gastrointestinal: Reports as per HPI and Reports no additional gastrointestinal complaints Musculoskeletal: Musculoskeletal: Reports no additional musculoskeletal complaints Integumentary/Breasts: Skin/Breast: Reports system reviewed and no additional complaints, except as docu and Reports as per HPI Neurologic: Reports system reviewed and no additional complaints, except as documented, Reports as per HPI and Reports Normal hearing present Psychiatric: Psychiatric: Reports no additional psychiatric complaints and Reports as per HPI Endocrine: Endocrine: Reports no additional endocrine complaints Hematologic/Lymphatic: Hematologic/Lymphatic: Reports no additional hematologic/lymphatic complaints Allergic/Immunologic: Allergic/Immunologic: Reports no additional allergic/immunologic complaints [facility] Past Medical History Medical History Abnormal TSH Atrial fibrillation with RVR CAD (coronary artery disease) Chronic respiratory failure with hypoxia and hypercapnia Congestive heart failure Dissecting aneurysm 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 Essential hypertension Family history of aortic dissection Hematuria Hx of ventricular septal defect Hyperlipidemia TIA (transient ischemic attack) Surgical History Surgical History (Reviewed 01/16
[2021-01-16] MEDS: LORazepam INJ (*CRX) 2 MG/ML VIAL 0.5 MG IV PUSH (16:01)
[2021-01-16] MEDS: IPRATROPIUM BR 0.02% INH SOLN 0.5 MG/2.5 ML VIAL INHALATION (20:09)
[2021-01-16] MEDS: methylPREDNISolone SOD SUCC 125 MG VIAL 60 MG IV PUSH (20:24)
[2021-01-17] VITALS (29 sets, daily range): BP systolic 107–137; BP diastolic 48–107; PULSE 82–164; RESP 20–40; TEMP 35.7–36.6; O2SAT 92–100
[2021-01-17] MEDS: IPRATROPIUM BR 0.02% INH SOLN 0.5 MG/2.5 ML VIAL INHALATION ×4 (02:13→20:32)
[2021-01-17 05:29] LABS: Alanine Aminotransferase 17 U/L (4-35); Albumin Level 3.3 g/dL (3.5-5.1); Alkaline Phosphatase 71 U/L (38-126); Aspartate Amino Transferase 28 U/L (14-36); Bilirubin,Total 0.8 mg/dL (0.2-1.3); Blood Urea Nitrogen 20 mg/dL (7-17); Calcium 8.7 mg/dL (8.4-10.2); Carbon Dioxide > 40 mmol/L (22-30); Chloride 97 mmol/L (98-107); Estimated CRCL calculation 37 ml/min; Estimated Glomerular Filt Rate > 60; Glucose 160 mg/dL (65-105); Magnesium 1.8 mg/dL (1.6-2.3); Potassium 2.9 mmol/L (3.4-5.0); Sodium 145 mmol/L (137-145)
[2021-01-17] MEDS: FUROSEMIDE INJ 40 MG/4 ML VIAL IV PUSH ×2 (05:43→17:58)
[2021-01-17] MEDS: methylPREDNISolone SOD SUCC 125 MG VIAL 60 MG IV PUSH ×3 (05:44→20:24)
[2021-01-17 06:06] LABS: Thyroid Stimulating Hormone Reflex < 0.015 uIU/mL (0.465-4.68)
[2021-01-17 07:18] LABS: Free T4 Free Thyroxine Reflex 2.55 ng/dL (0.78-2.19)
[2021-01-17] MEDS: FLUTICASONE PROPIONATE 0.05% NA SPR 16 GM BTL (*BKC) 2 SPRAY NASAL (09:16)
--- NOTE | 2021-01-17 12:02 | PCSTNOTE ---
Please refer to the Bedside Swallow Evaluation in the EMR. Please note, silent aspiration cannot be ruled out at bedside.
--- NOTE | 2021-01-17 14:09 | PC.NURSE ---
Patient off the floor @1356 for MBS.
--- NOTE | 2021-01-17 14:43 | PCSTNOTE ---
The patient treatment was not able to be completed on [] due to []. Will plan to continue treatment per plan of care.
--- NOTE | 2021-01-17 17:40 | PM.IMPN ---
Progress Note: A&P Assessment and Plan (1) Chronic respiratory failure with hypoxia and hypercapnia: Code(s): J96.11 - Chronic respiratory failure with hypoxia; J96.12 - Chronic respiratory failure with hypercapnia Status: Chronic Assessment and Plan: The patient chronically wears oxygen at home. She is currently on a BiPAP due to the hypercapnia wean off when feasible. The patient has chronic hypoxic. She has a history of CHF and COPD. Patient recently was treated for pneumonia at [facility]. She has been in the long term for about 2-3 weeks and has been pretty much immobile. Least likely that she has a PE the patient has been on anticoagulation since she was diagnosed with AFib about a month ago. 01/17/21 17:40 patient 80-year-old female a resident of [facility], history of dissecting aortic aneurysm spontaneously healed history of atrial fibrillation anticoagulated with Eliquis, patient was brought to the emergency department with shortness of breath was found to have atrial fibrillation with RVR in emergency depart patient was started on diltiazem drip however patient remains in RVR will consult title manager for further recommendation. patient is also suspect of having UTI being treated with Rocephin will follow-up on urine culture and sensitivity, unfortunately patient is very poor historian. (2) UTI (urinary tract infection): Code(s): N39.0 - Urinary tract infection, site not specified Status: Acute Assessment and Plan: . Cultures are pending. The patient was started on Rocephin. the patient has a history of E coli it was sensitive to Rocephin. (3) Dissecting aneurysm: Status: Chronic Assessment and Plan: Appears to be stable. Patient was discharged from [facility] approximately 3 weeks ago and it was reported that the aneurysm sealed itself off. (4) Hyperlipidemia: Code(s): E78.5 - Hyperlipidemia, unspecified Status: Chronic Assessment and Plan: Continue with patient Zetia and atorvastatin (5) Congestive heart failure: Code(s): I50.9 - Heart failure, unspecified Status: Chronic Assessment and Plan: IV Lasix. Patient's metoprolol as on hold while she is on a Cardizem drip. (6) Atrial fibrillation with RVR: Code(s): I48.91 - Unspecified atrial fibrillation Status: Chronic Assessment and Plan: The patient is on Eliquis and she is on a diltiazem drip. (7) Essential hypertension: Code(s): I10 - Essential (primary) hypertension Status: Chronic Assessment and Plan: Patient is currently on a diltiazem drip and her metoprolol is on hold at this time. Once her rate drops and stays listen 100 that we can give her metoprolol and shut off the Cardizem drip and hour afterwards. (8) Chronic obstructive pulmonary disease (COPD): Code(s): J44.9 - Chronic obstructive pulmonary disease, unspecified Status: Acute Assessment and Plan: The patient has hypercapnia at this time. Will try to get the patient off the BiPAP and get her back on her oxygen. Will continue with nebulizer treatments, Solu-Medrol and her trelegy Ellipta. Subjective Date/time seen: 01/17/21 17:40 patient 80-year-old female a resident of [facility], history of dissecting aortic aneurysm spontaneously healed history of atrial fibrillation anticoagulated with Eliquis, patient was brought to the emergency department with shortness of breath was found to have atrial fibrillation with RVR in emergency depart patient was started on diltiazem drip however patient remains in RVR will consult title manager for further recommendation. patient is also suspect of having UTI being treated with Rocephin will follow-up on urine culture and sensitivity, unfortunately patient is very poor historian. Review of Systems Review of Systems: ROS unobtainable: Yes unobtainable due to mental status Objective
[2021-01-17] MEDS: METOPROLOL TARTRATE INJ 5 MG/5 ML VIAL IV PUSH (17:52)
[2021-01-17] MEDS: APIXABAN 5 MG TABLET PO (17:52)
[2021-01-17] MEDS: MONTELUKAST SODIUM 10 MG TABLET PO (20:24)
[2021-01-17] MEDS: METOPROLOL TARTRATE 50 MG TAB 100 MG PO (20:25)
[2021-01-18] VITALS (27 sets, daily range): BP systolic 110–117; BP diastolic 59–81; PULSE 61–136; RESP 16–28; TEMP 35.8–36.7; O2SAT 93–100
--- NOTE | 2021-01-18 | ECHO_ITS ---
Patient Info Name: Domi Johnston Age: 80 years : 1940 Gender: Female Ht: 62 in Wt: 149 lbs BSA: 1.74 m2 HR: 114 bpm BP: 116 / 64 mmHg Heart Rhythm: Atrial Fibrillation Technical Quality: Good Exam Date: 01/18/2021 12:57 PM Exam Location: [facility] Patient Status: Inpatient Admit Date: 01/16/2021 Staff Ordering Physician: Adalid Talamantes MD Pet Trainer: JURGEN Attending Provider: Huong Bryant MD Exam Type: CA echo doppler color flow Study Info Indications R06.02 - Shortness of breath Complete two-dimensional, color flow and Doppler transthoracic echocardiogram is performed. Summary 1. Complete two-dimensional, color flow and Doppler transthoracic echocardiogram is performed. 2. Left ventricular chamber dimension is normal. 3. Left ventricular systolic function is hyperdynamic, estimated at >70%. 4. There is no increased left ventricular wall thickness. 5. The left ventricular diastolic function is abnormal. 6. Right ventricular chamber dimension is mildly enlarged. 7. Right ventricular systolic function is reduced. 8. Left atrial chamber dimension is severely enlarged. 9. Right atrial chamber dimension is moderately enlarged. 10. There is moderate mitral valve regurgitation. 11. There is mild aortic valve regurgitation. 12. There is moderate tricuspid valve regurgitation. 13. Severe pulmonary hypertension, estimated pulmonary arterial systolic pressure is 87 mmHg. 14. There is mild pulmonic regurgitation. Left Ventricle Left ventricular chamber dimension is normal. Left ventricular systolic function is hyperdynamic, estimated at >70%. There is no increased left ventricular wall thickness. The left ventricular diastolic function is abnormal. Right Ventricle Right ventricular chamber dimension is mildly enlarged. Right ventricular systolic function is reduced. Left Atria Left atrial chamber dimension is severely enlarged. Right Atria Right atrial chamber dimension is moderately enlarged. Atrial Septum Intact interatrial septum visualized by color flow imaging. Aortic Valve The aortic valve is trileaflet. There is mild aortic valve sclerosis. There is no aortic valve stenosis. There is mild aortic valve regurgitation. Pulmonic Valve The pulmonic valve is normal. There is no pulmonic valve stenosis. There is mild pulmonic regurgitation. Mitral Valve The mitral valve has calcified annulus. There is no mitral valve stenosis. There is moderate mitral valve regurgitation. Tricuspid Valve The tricuspid valve leaflets are normal. There is no significant tricuspid valve stenosis. There is moderate tricuspid valve regurgitation. Severe pulmonary hypertension, estimated pulmonary arterial systolic pressure is 87 mmHg. Pericardium/Pleural The pericardium appears normal. There is no pericardial effusion. Inferior Vena Cava Dilated inferior vena cava with <50% collapse upon inspiration consistent with elevated right atrial pressure, 10 mmHg. Aorta The aortic root size at the sinus of Valsalva is normal. The prox ascending aorta size is normal. Left Ventricular Outflow Tract Name Value Normal LVOT 2D LVOT Diameter 2.1 cm
[2021-01-18] MEDS: IPRATROPIUM BR 0.02% INH SOLN 0.5 MG/2.5 ML VIAL INHALATION ×4 (02:22→20:23)
[2021-01-18] MEDS: FUROSEMIDE INJ 40 MG/4 ML VIAL IV PUSH ×2 (05:38→18:25)
[2021-01-18] MEDS: methylPREDNISolone SOD SUCC 125 MG VIAL 60 MG IV PUSH ×3 (05:38→20:52)
--- NOTE | 2021-01-18 08:08 | P.CDI_ITS ---
CDI Query Clarification Request 1) -Acute on chronic respiratory failure documented by EDP on admission order -O2 sats 74% on 2L O2 documented in the ED -Pt placed on bipap in the ED. Labored breathing and short of breath doc by ED nurse. - The patient was placed on a BiPAP for her respiratory distress documented in H&P -Chronic respiratory failure on problem list - She is currently on a BiPAP due to the hypercapnia wean off when feasible. The patient has chronic hypoxic documented in progress note Please clarify acuity of respiratory failure: * Acute on chronic * Chronic * Unable to determine 2) -CHF status chronic documented on problem list - Worsened airspace opacities in the left mid and lower lung zones consistent with pulmonary edema versus pneumonia. documented in progress note - pitting and 4+ edema documented -01/16 CXR impression:1. Small right lung with worsened diffuse right lung disease, consistent with pulmonary edema versus pneumonia superimposed on chronic lung disease. 2. Worsened airspace opacities in left mid and lower lung zones, consistent with pulmonary edema versus pneumonia. -01/16 BNP 8360 -Lasix 40mg IV q 12 hrs ordered Please further clarify type and acuity of CHF: * Systolic *Acute * Diastolic *Chronic * Both Systolic and Diastolic *Acute on chronic * Unable to determine *Unable to determine <Sarah Ashford RN - Last Filed: 01/18/21 08:27>
[2021-01-18] MEDS: FLUTICASONE/UMECLIDIN/VILANTER 100-62.5-25 MCG ELLIPTA 1 PUFF INHALATION (08:19)
[2021-01-18] MEDS: EZETIMIBE 10 MG TABLET PO (08:37)
[2021-01-18] MEDS: ATORVASTATIN 40 MG TABLET PO (08:37)
[2021-01-18] MEDS: APIXABAN 5 MG TABLET PO ×2 (08:37→17:22)
[2021-01-18] MEDS: FLUTICASONE PROPIONATE 0.05% NA SPR 16 GM BTL (*BKC) 2 SPRAY NASAL (08:38)
--- NOTE | 2021-01-18 09:22 | PM.CNCAR ---
Assessment and Plan Additional Plan This is an 80-year-old lady with: Atrial fibrillation diagnosed last month when she was in the hospital at [place]. The etiology for atrial fibrillation is related to her chronic lung disease/fibrosing mediastinitis as her echocardiogram demonstrated significant right-sided chamber dilation. She is on a high dose of metoprolol to try to provide rate control which apparently was satisfactory when she was discharged from [place] despite the metoprolol she is moderately tachycardic at this time. Because she has good renal function of going to add some digoxin to her regimen and stop the IV diltiazem. I will give her 0.5 mg today orally and start her on 0.25 mg starting tomorrow morning. 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 In addition to this she has a paralyzed right hemidiaphragm. These will be chronic issues that obviously are making her rate control of her atrial fibrillation somewhat challenging but these are obviously issues that cannot be resolved. Systemic anticoagulation with apixaban should be continued. Given the recent evaluation at [facility] she does not need to be evaluated any further as far as her cardiac pathology here. SI said in my note above she is known to have a chronic type B aortic dissection which is unrelated to her fall in November and unrelated to her shortness of breath and atrial arrhythmias. Román Rico MD [facility] History of Present Illness History of Present Illness Consult date/time: 01/18/21 09:22 Consult reason: atrial fibrillation Reason For Visit: chf exacerbation/acute on chronic respiratory fail Narrative: This is an 80-year-old woman who is known to me with a history of previous CVA and patent foramen ovale who is being seen at the request of the hospitalist for assistance with the management of rate control with atrial fibrillation. The patient came into the hospital here yesterday from home apparently because she was short of breath and was found to be in a state of reduced responsiveness which was felt to be due to hypoxemia/hypercarbia. She is a good historian for remote events but a difficult historian for recent events. This is a patient that I have been following in the office for a number of years because of a history of a patent foramen ovale. She had a CVA and was found to have a patent foramen ovale back in 2016. At that time referred her to [facility] for closure of her PFO which was done with an Amplatzer device successfully and she has not had any issues of a cardiac nature since then until the development of atrial fibrillation. She was last seen in my office the summer at which time she was stable from a cardiac perspective. 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 She was recently in the hospital for quite awhile downtown at [place] from mid November to mid December of this year after falling at home and being brought in here to [facility]. She does have a known chronic type B aortic dissection and when this was visualized in the emergency room apparently there was high degree of concern that this was an acute problem she was emergently transferred to [place] where it was imaged and found to be unchanged from previous exams. While she was there she was found to be in atrial fibrillation with rapid ventricular response. This appears to be the result of her chronic lung disease since her right-sided chambers are dilated. Rate control and anticoagulation was recommended. She was placed on apixaban and a high dose of metoprolol 100 mg q.12 hours. According to the chart at the time of discharge she was well rate controlled. It looks like she was
[2021-01-18 09:53] LABS: Blood Urea Nitrogen 28 mg/dL (7-17); Calcium 8.8 mg/dL (8.4-10.2); Carbon Dioxide > 40 mmol/L (22-30); Chloride 92 mmol/L (98-107); Estimated CRCL calculation 35 ml/min; Estimated Glomerular Filt Rate 53; Glucose 197 mg/dL (65-105); Magnesium 1.7 mg/dL (1.6-2.3); Potassium 2.8 mmol/L (3.4-5.0); Sodium 141 mmol/L (137-145)
[2021-01-18] MEDS: POTASSIUM CHLORIDE 20 MEQ PACKET (FOR LIQUID) 40 MEQ PO (10:28)
[2021-01-18] MEDS: DIGOXIN 250 MCG TABLET 500 MCG PO (10:29)
--- NOTE | 2021-01-18 15:13 | PM.IMPN ---
Progress Note: A&P Assessment and Plan (1) Chronic respiratory failure with hypoxia and hypercapnia: Code(s): J96.11 - Chronic respiratory failure with hypoxia; J96.12 - Chronic respiratory failure with hypercapnia Status: Chronic Assessment and Plan: The patient chronically wears oxygen at home. She is currently on a BiPAP due to the hypercapnia wean off when feasible. The patient has chronic hypoxic. She has a history of CHF and COPD. Patient recently was treated for pneumonia at [facility]. She has been in the intermediate for about 2-3 weeks and has been pretty much immobile. Least likely that she has a PE the patient has been on anticoagulation since she was diagnosed with AFib about a month ago. 01/18/21 15:13 01/17 patient 80-year-old female a resident of [facility], history of dissecting aortic aneurysm spontaneously healed history of atrial fibrillation anticoagulated with Eliquis, patient was brought to the emergency department with shortness of breath was found to have atrial fibrillation with RVR in emergency depart patient was started on diltiazem drip however patient remains in RVR will consult chore tender for further recommendation. patient is also suspect of having UTI being treated with Rocephin will follow-up on urine culture and sensitivity, unfortunately patient is very poor historian. 01/18 patient has remained in atrial fibrillation patient was seen chore tender and suspect atrial fibrillation was diagnosed while patient was at [facility] secondary to chronic lung disease and fibrosis, and her cardiac echo demonstrated right-sided ventricle dilatation, chore tender recommending addition of digoxin as high-dose metoprolol is not controlling patient rate, will start digoxin 0.5 mg now and then continue 0.25 mg daily starting tomorrow, patient with a chronic lung disease and paralyzed right hemidiaphragm is aggravated her breathing resulting triggering atrial fibrillation with RVR, will continue to monitor patient been anticoagulated with Eliquis, with all her chronic medical problems including dissecting type B aortic dissection making challenging to control patient rate according to her chore tender, patient is clinically stable, patient is a poor historian will continue to monitor (2) UTI (urinary tract infection): Code(s): N39.0 - Urinary tract infection, site not specified Status: Acute Assessment and Plan: . Cultures are pending. The patient was started on Rocephin. the patient has a history of E coli it was sensitive to Rocephin. (3) Dissecting aneurysm: Status: Chronic Assessment and Plan: Appears to be stable. Patient was discharged from [facility] approximately 3 weeks ago and it was reported that the aneurysm sealed itself off. (4) Hyperlipidemia: Code(s): E78.5 - Hyperlipidemia, unspecified Status: Chronic Assessment and Plan: Continue with patient Zetia and atorvastatin (5) Congestive heart failure: Code(s): I50.9 - Heart failure, unspecified Status: Chronic Assessment and Plan: IV Lasix. Patient's metoprolol as on hold while she is on a Cardizem drip. (6) Atrial fibrillation with RVR: Code(s): I48.91 - Unspecified atrial fibrillation Status: Chronic Assessment and Plan: The patient is on Eliquis and she is on a diltiazem drip. (7) Essential hypertension: Code(s): I10 - Essential (primary) hypertension Status: Chronic Assessment and Plan: Patient is currently on a diltiazem drip and her metoprolol is on hold at this time. Once her rate drops and stays listen 100 that we can give her metoprolol and shut off the Cardizem drip and hour afterwards. (8) Chronic obstructive pulmonary disease (COPD): Code(s): J44.9 - Chronic obstructive pulmonary disease, unspecified Status: Acute Assessment and Plan: The patient has hypercapnia at
[2021-01-18 16:18] LABS: Blood Urea Nitrogen 31 mg/dL (7-17); Carbon Dioxide > 40 mmol/L (22-30); Chloride 92 mmol/L (98-107); Estimated CRCL calculation 35 ml/min; Estimated Glomerular Filt Rate 53; Glucose 208 mg/dL (65-105); Potassium 3.9 mmol/L (3.4-5.0); Sodium 140 mmol/L (137-145)
[2021-01-18] MEDS: METOPROLOL TARTRATE 50 MG TAB 100 MG PO (20:52)
[2021-01-18] MEDS: MONTELUKAST SODIUM 10 MG TABLET PO (20:52)
--- NOTE | 2021-01-18 23:43 | PM.EVENT ---
Event Note Event Note Event Note: Patient's urine culture came back ESBL in is resistant to Rocephin. She was changed to Cipro IV.
[2021-01-19] VITALS (30 sets, daily range): BP systolic 111–129; BP diastolic 63–76; PULSE 73–140; RESP 12–32; TEMP 36.1–36.8; O2SAT 92–100; BMI 10.0
[2021-01-19] MEDS: CIPROFLOXACIN 400 MG/D5W 200ML 200 ML 200 MG IVPB ×3 (00:28→22:46)
[2021-01-19 01:04] LABS: Base Excess ABG 9.3 mEq/l (+/-2.0); Carboxyhemoglobin 0.3 % THb (0-2.0); Fractional Inspired Oxygen 32 %; HCO3 ABG 35.8 mEq/l (22.0-26.0); Methemoglobin ABG 0.4 %THb (0-1.5); Oxygen Content ABG 11.4 %vol (16.0-22.0); Oxyhemoglobin 94.1 % THb (90.0-100.0); PO2 ABG 85.6 mmHg (80.0-100.0); PO2 FiO2 Ratio Arterial Blood 2.67 %; Reduced Hemoglobin 5.2 %THb (0-5.0); Total Hemoglobin 8.5 g/dL (12.0-18.0); pH ABG 7.379 (7.350-7.450)
[2021-01-19 01:05] LABS: Modified Allen's Test Pass; Site Drawn LEFT RADIAL
[2021-01-19 01:06] LABS: Device NASAL CANNULA
[2021-01-19] MEDS: IPRATROPIUM BR 0.02% INH SOLN 0.5 MG/2.5 ML VIAL INHALATION ×4 (01:27→19:38)
[2021-01-19 04:57] LABS: Hematocrit 26.2 % (37.0-47.0); Hemoglobin 7.6 g/dL (12.0-15.0); Mean Corpuscular Hemoglobin 27.3 pg (26-34); Mean Corpuscular Volume 94.2 fl (80-100); Platelet Count Result 415 k/mm3 (150-375); Red Blood Count 2.78 M/mm3 (4.2-5.4); Red Cell Distribution Width 17.4 % (11.5-14.5); White Blood Count 12.8 K/mm3 (4.5-10.0)
[2021-01-19 05:13] LABS: Blood Urea Nitrogen 31 mg/dL (7-17); Calcium 8.8 mg/dL (8.4-10.2); Carbon Dioxide > 40 mmol/L (22-30); Chloride 92 mmol/L (98-107); Estimated CRCL calculation 34 ml/min; Estimated Glomerular Filt Rate 53; Glucose 173 mg/dL (65-105); Magnesium 1.7 mg/dL (1.6-2.3); Potassium 3.7 mmol/L (3.4-5.0); Sodium 139 mmol/L (137-145)
[2021-01-19] MEDS: methylPREDNISolone SOD SUCC 125 MG VIAL 60 MG IV PUSH ×3 (06:17→22:46)
[2021-01-19] MEDS: FUROSEMIDE INJ 40 MG/4 ML VIAL IV PUSH ×2 (06:18→17:03)
[2021-01-19] MEDS: FLUTICASONE/UMECLIDIN/VILANTER 100-62.5-25 MCG ELLIPTA 1 PUFF INHALATION (07:50)
[2021-01-19] MEDS: EZETIMIBE 10 MG TABLET PO (08:42)
[2021-01-19] MEDS: FLUTICASONE PROPIONATE 0.05% NA SPR 16 GM BTL (*BKC) 2 SPRAY NASAL (08:42)
[2021-01-19] MEDS: APIXABAN 5 MG TABLET PO ×2 (08:43→16:25)
[2021-01-19] MEDS: DIGOXIN 250 MCG TABLET PO (08:43)
[2021-01-19] MEDS: ATORVASTATIN 40 MG TABLET PO (08:43)
[2021-01-19] MEDS: METOPROLOL TARTRATE 50 MG TAB 100 MG PO ×2 (08:44→20:10)
[2021-01-19] MEDS: POTASSIUM CHLORIDE 20 MEQ PACKET (FOR LIQUID) 40 MEQ PO (08:44)
[2021-01-19] MEDS: MAGNESIUM OXIDE 400 MG TABLET PO (09:55)
--- NOTE | 2021-01-19 11:33 | PM.PNCARD ---
Progress Note: A&P Assessment and Plan (1) Acute on chronic diastolic (congestive) heart failure: Code(s): I50.33 - Acute on chronic diastolic (congestive) heart failure Status: Acute Assessment and Plan: She continues to have [id number] bilateral lower extremity edema and is slightly fluid positive over the last 24 hours. Therefore she should continue receiving IV furosemide q.12 hours as currently ordered. May consider switching to p.o. furosemide tomorrow. (2) Chronic respiratory failure with hypoxia and hypercapnia: Code(s): J96.11 - Chronic respiratory failure with hypoxia; J96.12 - Chronic respiratory failure with hypercapnia Status: Chronic Assessment and Plan: Stable on 3 L oxygen per nasal cannula (3) Hyperlipidemia: Code(s): E78.5 - Hyperlipidemia, unspecified Status: Chronic Assessment and Plan: Continue statin therapy. (4) Atrial fibrillation with RVR: Code(s): I48.91 - Unspecified atrial fibrillation Status: Chronic Assessment and Plan: Her rate is reasonably controlled on metoprolol 100 mg b.i.d. and digoxin 2.5 mg daily. Will not make any changes to his medications at this time. (5) Essential hypertension: Code(s): I10 - Essential (primary) hypertension Status: Chronic Assessment and Plan: Blood pressure is well controlled. Subjective Date/time seen: Date of service 01/19/21 11:33 follow-up for management of atrial fibrillation. Patient resting comfortably in bed today. She appears to be dyspneic but reportedly this is her baseline. She is on oxygen per nasal cannula. She denies any palpitations, chest pain, worsening lower extremity edema. She states she is feeling well and does not have any complaints at this time. She remains in atrial fibrillation but her rate is reasonably controlled on metoprolol with the addition digoxin yesterday. Her heart rate is currently 90-100 beats per minute. She did have some brief periods of rapid ventricular response with heart rate up to 160 beats per minute noted on telemetry last night and this morning just prior to her medication administration. However since receiving her a.m. dose of metoprolol and digoxin her rate has remained well controlled. Review of Systems Constitutional: Constitutional: Denies body ache(s), Denies chills and Denies fever(s) Eyes: Eyes: Reports no additional eye complaints ENT: Reports system reviewed and no additional complaints, except as documented Cardiovascular: Cardiovascular: Reports no additional cardiovascular complaints, Denies chest pain and Reports dyspnea Respiratory: Respiratory: Reports dyspnea Gastrointestinal: Gastrointestinal: Reports no additional gastrointestinal complaints Musculoskeletal: Musculoskeletal: Reports no additional musculoskeletal complaints Integumentary/Breasts: Skin/Breast: Reports system reviewed and no additional complaints, except as docu Neurologic: Reports system reviewed and no additional complaints, except as documented Hematologic/Lymphatic: Hematologic/Lymphatic: Reports no additional hematologic/lymphatic complaints Allergic/Immunologic: Allergic/Immunologic: Reports no additional allergic/immunologic complaints Exam Const: General: comfortable HENMT: Mouth: Yes moist mucous membranes Eyes: Sclera: sclerae normal Pupils: Equal, round and reactive pupils present Neck: Neck: supple and no JVD Thyroid: thyroid normal Resp: Effort & Inspection: normal respiratory effort Auscultation: diminished lung sounds Other: Diminished RLL Cardio: Rhythm: abnormal rhythm irregularly irregular GI: GI Palp: Yes Soft to palpation Auscultation: normal bowel sounds Skin: General skin exam: normal color Neuro: Cranial nerves: Yes Equal, round and reactive pupils present Cognition (Neuro): normal cognition Extrem: Other: +1 bilateral lower extremity edema. Psych: Mental Status: men
--- NOTE | 2021-01-19 15:38 | PM.IMPN ---
Progress Note: A&P Assessment and Plan (1) Chronic respiratory failure with hypoxia and hypercapnia: Code(s): J96.11 - Chronic respiratory failure with hypoxia; J96.12 - Chronic respiratory failure with hypercapnia Status: Chronic Assessment and Plan: The patient chronically wears oxygen at home. She is currently on a BiPAP due to the hypercapnia wean off when feasible. The patient has chronic hypoxic. She has a history of CHF and COPD. Patient recently was treated for pneumonia at [facility]. She has been in the [facility] for about 2-3 weeks and has been pretty much immobile. Least likely that she has a PE the patient has been on anticoagulation since she was diagnosed with AFib about a month ago. 01/19/21 15:38 01/17 patient 80-year-old female a resident of [facility], history of dissecting aortic aneurysm spontaneously healed history of atrial fibrillation anticoagulated with Eliquis, patient was brought to the emergency department with shortness of breath was found to have atrial fibrillation with RVR in emergency depart patient was started on diltiazem drip however patient remains in RVR will consult central services tech for further recommendation. patient is also suspect of having UTI being treated with Rocephin will follow-up on urine culture and sensitivity, unfortunately patient is very poor historian. 01/18 patient has remained in atrial fibrillation patient was seen central services tech and suspect atrial fibrillation was diagnosed while patient was at [facility] secondary to chronic lung disease and fibrosis, and her cardiac echo demonstrated right-sided ventricle dilatation, central services tech recommending addition of digoxin as high-dose metoprolol is not controlling patient rate, will start digoxin 0.5 mg now and then continue 0.25 mg daily starting tomorrow, patient with a chronic lung disease and paralyzed right hemidiaphragm is aggravated her breathing resulting triggering atrial fibrillation with RVR, will continue to monitor patient been anticoagulated with Eliquis, with all her chronic medical problems including dissecting type B aortic dissection making challenging to control patient rate according to her central services tech, patient is clinically stable, patient is a poor historian will continue to monitor 01/19 patient remains in atrial fibrillation rate is controlled currently on metoprolol tartrate 100 mg b.i.d. and discharged 0.25 mg daily, patient does appear somewhat short of breath most likely secondary acute on chronic diastolic dysfunction patient is being diuresed IV furosemide 40 mg b.i.d. will continue PT OT and further recommendation to follow. (2) UTI (urinary tract infection): Code(s): N39.0 - Urinary tract infection, site not specified Status: Acute Assessment and Plan: The patient was started on Rocephin. the patient has a history of E coli it was sensitive to Rocephin. However culture showed E coli with ESBL resistant to Rocephin patient is being treated with Cipro IV 10/16 will continue to monitor (3) Dissecting aneurysm: Status: Chronic Assessment and Plan: Appears to be stable. Patient was discharged from [facility] approximately 3 weeks ago and it was reported that the aneurysm sealed itself off. (4) Hyperlipidemia: Code(s): E78.5 - Hyperlipidemia, unspecified Status: Chronic Assessment and Plan: Continue with patient Zetia and atorvastatin (5) Congestive heart failure: Code(s): I50.9 - Heart failure, unspecified Status: Chronic Assessment and Plan: IV Lasix. Patient's metoprolol as on hold while she is on a Cardizem drip. (6) Atrial fibrillation with RVR: Code(s): I48.91 - Unspecified atrial fibrillation Status: Chronic Assessment and Plan: The patient is on Eliquis and she is on a diltiazem drip. (7) Essential hypertension: Code(s): I10 - Essential (primary) hypertension
[2021-01-19] MEDS: ALPRAZolam (*CRX) 0.25 MG TABLET PO (17:36)
[2021-01-19] MEDS: MONTELUKAST SODIUM 10 MG TABLET PO (20:10)
[2021-01-19] MEDS: LORazepam INJ (*CRX) 2 MG/ML VIAL 0.5 MG IV PUSH (22:13)
[2021-01-20] VITALS (22 sets, daily range): BP systolic 110–126; BP diastolic 58–88; PULSE 77–129; RESP 13–49; TEMP 36.1–36.4; O2SAT 89–100
[2021-01-20] MEDS: IPRATROPIUM BR 0.02% INH SOLN 0.5 MG/2.5 ML VIAL INHALATION ×3 (01:55→14:01)
[2021-01-20] MEDS: LORazepam INJ (*CRX) 2 MG/ML VIAL 0.5 MG IV PUSH ×2 (04:42→13:44)
[2021-01-20] MEDS: FUROSEMIDE INJ 40 MG/4 ML VIAL IV PUSH (05:10)
[2021-01-20] MEDS: methylPREDNISolone SOD SUCC 125 MG VIAL 60 MG IV PUSH ×2 (05:10→13:44)
[2021-01-20 05:46] LABS: Hematocrit 28.1 % (37.0-47.0); Hemoglobin 8.1 g/dL (12.0-15.0); Mean Corpuscular HGB Conc 28.8 g/dl (32-36); Mean Corpuscular Hemoglobin 27.2 pg (26-34); Mean Corpuscular Volume 94.3 fl (80-100); Mean Platelet Volume 8.9 fl (7.4-10.4); Platelet Count Result 406 k/mm3 (150-375); Red Blood Count 2.98 M/mm3 (4.2-5.4); Red Cell Distribution Width 17.3 % (11.5-14.5); White Blood Count 8.4 K/mm3 (4.5-10.0)
[2021-01-20 06:06] LABS: Blood Urea Nitrogen 36 mg/dL (7-17); Calcium 8.7 mg/dL (8.4-10.2); Carbon Dioxide > 40 mmol/L (22-30); Chloride 92 mmol/L (98-107); Estimated CRCL calculation 48 ml/min; Estimated Glomerular Filt Rate > 60; Glucose 168 mg/dL (65-105); Magnesium 1.8 mg/dL (1.6-2.3); Potassium 4.1 mmol/L (3.4-5.0); Sodium 138 mmol/L (137-145)
[2021-01-20] MEDS: FLUTICASONE PROPIONATE 0.05% NA SPR 16 GM BTL (*BKC) 2 SPRAY NASAL (09:15)
[2021-01-20] MEDS: CIPROFLOXACIN 400 MG/D5W 200ML 200 ML 200 MG IVPB (09:17)
--- NOTE | 2021-01-20 09:20 | PC.NURSE ---
Attempted to give patient oral medications this morning, unable to follow commands and swallow when told. Held medications at this time and placed back on bipap due to low o2 saturations on nasal cannula
--- NOTE | 2021-01-20 09:28 | PM.PNCARD ---
Progress Note: A&P Assessment and Plan (1) Acute on chronic diastolic (congestive) heart failure: Code(s): I50.33 - Acute on chronic diastolic (congestive) heart failure Status: Acute Assessment and Plan: She continues to have tkcc-[id number]-atkabrdm bilateral lower extremity edema and is slightly fluid positive over the last 24 hours. Therefore she should continue receiving IV furosemide q.12 hours as currently ordered. May consider switching to p.o. furosemide tomorrow. (2) Chronic respiratory failure with hypoxia and hypercapnia: Code(s): J96.11 - Chronic respiratory failure with hypoxia; J96.12 - Chronic respiratory failure with hypercapnia Status: Chronic Assessment and Plan: Stable on 3 L oxygen per nasal cannula (3) Hyperlipidemia: Code(s): E78.5 - Hyperlipidemia, unspecified Status: Chronic Assessment and Plan: Continue statin therapy. (4) Atrial fibrillation with RVR: Code(s): I48.91 - Unspecified atrial fibrillation Status: Chronic Assessment and Plan: Her rate is reasonably controlled on metoprolol 100 mg b.i.d. and digoxin 2.5 mg daily. Will not make any changes to his medications at this time. (5) Essential hypertension: Code(s): I10 - Essential (primary) hypertension Status: Chronic Assessment and Plan: Blood pressure is well controlled. Additional Plan This is an 80-year-old lady with: Atrial fibrillation diagnosed last month when she was in the hospital at [facility]. The etiology for atrial fibrillation is related to her chronic lung disease/fibrosing mediastinitis as her echocardiogram demonstrated significant right-sided chamber dilation. She is on a high dose of metoprolol to try to provide rate control which apparently was satisfactory when she was discharged from [facility] despite the metoprolol she is moderately tachycardic at this time. Because she has good renal function of going to add some digoxin to her regimen and stop the IV diltiazem. I will give her 0.5 mg today orally and start her on 0.25 mg starting tomorrow morning. 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 In addition to this she has a paralyzed right hemidiaphragm. These will be chronic issues that obviously are making her rate control of her atrial fibrillation somewhat challenging but these are obviously issues that cannot be resolved. Systemic anticoagulation with apixaban should be continued. Given the recent evaluation at [facility] she does not need to be evaluated any further as far as her cardiac pathology here. SI said in my note above she is known to have a chronic type B aortic dissection which is unrelated to her fall in November and unrelated to her shortness of breath and atrial arrhythmias. Román Rico MD [facility] Subjective Date/time seen: 01/20/21 09:28 Interval history: Date of service 01/20/2021: Follow-up for atrial fibrillation Review of Systems Constitutional: Constitutional: Denies body ache(s), Denies chills and Denies fever(s) Eyes: Eyes: Reports no additional eye complaints ENT: Reports system reviewed and no additional complaints, except as documented Cardiovascular: Cardiovascular: Reports no additional cardiovascular complaints, Denies chest pain and Reports dyspnea Respiratory: Respiratory: Reports dyspnea Gastrointestinal: Gastrointestinal: Reports no additional gastrointestinal complaints Musculoskeletal: Musculoskeletal: Reports no additional musculoskeletal complaints Integumentary/Breasts: Skin/Breast: Reports system reviewed and no additional complaints, except as docu Neurologic: Reports system reviewed and no additional complaints, except as documented Hematologic/Lymphatic: Hematologic/Lymphatic: Reports no additional hematologic/lymphatic complaints Allergic/Immunologic: Allergic/Immunologic: Reports no additional allergic/imm
--- NOTE | 2021-01-20 09:37 | PM.PNCARD ---
Progress Note: A&P Assessment and Plan (1) Acute on chronic diastolic (congestive) heart failure: Code(s): I50.33 - Acute on chronic diastolic (congestive) heart failure Status: Acute Assessment and Plan: 01/19: She continues to have xdhk-lw-ajkcvzft bilateral lower extremity edema and is slightly fluid positive over the last 24 hours. Therefore she should continue receiving IV furosemide q.12 hours as currently ordered. May consider switching to p.o. furosemide tomorrow. 01/20: She appears to be nearly euvolemic on exam. Her lower extremity edema has improved. Fluid balance today is slightly negative. My plan was to transition her to oral furosemide today. However, due to her change in respiratory status, requirement of BiPAP, and inability to follow commands today she is unable to take medications by the oral route. Will decrease her furosemide to 20 mg IV daily. (2) Chronic respiratory failure with hypoxia and hypercapnia: Code(s): J96.11 - Chronic respiratory failure with hypoxia; J96.12 - Chronic respiratory failure with hypercapnia Status: Chronic Assessment and Plan: She is now on BiPAP at 40% FiO2. Management per hospitalist service. (3) Hyperlipidemia: Code(s): E78.5 - Hyperlipidemia, unspecified Status: Chronic Assessment and Plan: Continue statin therapy. (4) Atrial fibrillation with RVR: Code(s): I48.91 - Unspecified atrial fibrillation Status: Chronic Assessment and Plan: 01/19: Her rate is reasonably controlled on metoprolol 100 mg b.i.d. and digoxin 2.5 mg daily. Will not make any changes to his medications at this time. 01/20: She remains in atrial fibrillation with rate control in the low 100s. Continue with metoprolol 100 mg b.i.d. and digoxin 2.5 mg daily. Continue systemic anticoagulation with apixaban. (5) Essential hypertension: Code(s): I10 - Essential (primary) hypertension Status: Chronic Assessment and Plan: Blood pressure is well controlled. Subjective Date/time seen: 01/20/21 09:37 Interval history: Date of service 01/20/2021: Follow-up for atrial fibrillation and CHF. Patient today is in obvious respiratory distress and has been transitioned from nasal cannula oxygen to BiPAP. She is unable to answer questions due to BiPAP face mask and inability to tolerate periods of time off BiPAP without desaturating. Review of Systems Review of Systems: Narrative: Unable to perform review of systems due to patient being on full face mask BiPAP. Exam Narrative: Exam Narrative: Elderly woman who is restless now on BiPAP. Const: General: uncomfortable HENMT: Mouth: Yes Abnormal oral and palatal mucosa present (dry) Eyes: General: appearance normal, both eyes and all related structures Neck: Neck: no JVD Resp: Effort & Inspection: abnormal respiratory effort (Tachypneic) Auscultation: diminished lung sounds Cardio: Rate: abnormal rate and tachycardic Rhythm: abnormal rhythm and abnormal rhythm GI: GI Palp: Yes Soft to palpation Auscultation: normal bowel sounds Skin: General skin exam: normal color Neuro: Cognition (Neuro): abnormal cognition Other: Response to voice but does not follow commands. Moves all extremities spontaneously. Extrem: Right upper extremity: normal to inspection Left upper extremity: normal to inspection Right lower extremity: normal to inspection and edema (Trace) Details: non-pitting Left lower extremity: normal to inspection and edema (Trace) Details: non-pitting Psych: Mental Status: mental status grossly abnormal Objective Data Vital Signs Vital Signs: Vital Signs - 24 hr 01/19/21 10:00 01/19/21 10:37 01/19/21 12:00 Temperature 36.5 C Pulse Rate 83 90 Respiratory Rate 32 H Blood Pressure 116/75 Pulse Oximetry 98 96 01/19/21 12:54 01/19/21 12:59 01/19/21 14:00 Temperature Pulse Rate 100 100 110 H Respiratory Rate 18 18 Blood Pres
--- NOTE | 2021-01-20 09:55 | PCPTNOTE ---
Attempted to see patient for PT, patient's therapy was unable to be completed at this time due to patient unable to respond and participate.
[2021-01-20 11:05] LABS: Alveolar/Arterial O2 Gradient 98.2 mmHg; Base Excess ABG 16.5 mEq/l (+/-2.0); Fractional Inspired Oxygen 30 %; HCO3 ABG 40.7 mEq/l (22.0-26.0); Oxygen Content ABG 11.6 %vol (16.0-22.0); Oxygen Saturation ABG 93.2 % (95.0-100.0); Oxyhemoglobin 90.6 % THb (90.0-100.0); PCO2 ABG 47.9 mmHg (35.0-45.0); PO2 ABG 59.4 mmHg (80.0-100.0); PO2 FiO2 Ratio Arterial Blood 1.98 %; Total Hemoglobin 9.1 g/dL (12.0-18.0); pH ABG 7.547 (7.350-7.450)
[2021-01-20 11:06] LABS: Device NON-INVASIVE VENT; Modified Allen's Test Pass; Non-Invasive Expiratory Pressure 5 CMH2O; Non-Invasive Inspiratory Pressure 14 CMH2O; Non-Invasive Vent Rate 4 /MIN; Site Drawn LEFT RADIAL
--- NOTE | 2021-01-20 13:07 | PCOTNOTE ---
Attempted to see patient for skilled OT session this PM. Per RN, patient is going on hospice and not appropriate to see. OT session not completed this date.
--- NOTE | 2021-01-20 13:52 | PCSTNOTE ---
Therapist attempted to see patient today; during one attempt, she was highly anxious and attempting to refuse water by nurse, but did take several sips. Nurse notified VEHICLE OPERATOR TECHNICIAN that patient is being referred to Hospice Care. She is being discharged as she has been instructed in breathing exercises to complete prior to swallowing and yet they have not been successful in reducing anxiety.
--- NOTE | 2021-01-20 14:56 | PM.IMPN ---
Progress Note: A&P Assessment and Plan (1) Chronic respiratory failure with hypoxia and hypercapnia: Code(s): J96.11 - Chronic respiratory failure with hypoxia; J96.12 - Chronic respiratory failure with hypercapnia Status: Chronic Assessment and Plan: The patient chronically wears oxygen at home. She is currently on a BiPAP due to the hypercapnia wean off when feasible. The patient has chronic hypoxic. She has a history of CHF and COPD. Patient recently was treated for pneumonia at [facility]. She has been in the senior care for about 2-3 weeks and has been pretty much immobile. Least likely that she has a PE the patient has been on anticoagulation since she was diagnosed with AFib about a month ago. 01/20/21 14:57 01/17 patient 80-year-old female a resident of [facility], history of dissecting aortic aneurysm spontaneously healed history of atrial fibrillation anticoagulated with Eliquis, patient was brought to the emergency department with shortness of breath was found to have atrial fibrillation with RVR in emergency depart patient was started on diltiazem drip however patient remains in RVR will consult fruit checker for further recommendation. patient is also suspect of having UTI being treated with Rocephin will follow-up on urine culture and sensitivity, unfortunately patient is very poor historian. 01/18 patient has remained in atrial fibrillation patient was seen fruit checker and suspect atrial fibrillation was diagnosed while patient was at [facility] secondary to chronic lung disease and fibrosis, and her cardiac echo demonstrated right-sided ventricle dilatation, fruit checker recommending addition of digoxin as high-dose metoprolol is not controlling patient rate, will start digoxin 0.5 mg now and then continue 0.25 mg daily starting tomorrow, patient with a chronic lung disease and paralyzed right hemidiaphragm is aggravated her breathing resulting triggering atrial fibrillation with RVR, will continue to monitor patient been anticoagulated with Eliquis, with all her chronic medical problems including dissecting type B aortic dissection making challenging to control patient rate according to her fruit checker, patient is clinically stable, patient is a poor historian will continue to monitor 01/19 patient remains in atrial fibrillation rate is controlled currently on metoprolol tartrate 100 mg b.i.d. and discharged 0.25 mg daily, patient does appear somewhat short of breath most likely secondary acute on chronic diastolic dysfunction patient is being diuresed IV furosemide 40 mg b.i.d. will continue PT OT and further recommendation to follow. 01/20 today patient remains in atrial fibrillation rate is controlled however patient is quite anxious and appears her respiratory rate higher patient is not following any command and patient struggling to breathe, she is DNR, patient's son is present in the room, I spoke with the patient's son and he has agreed to discuss with hospice care and further recommendation to follow (2) UTI (urinary tract infection): Code(s): N39.0 - Urinary tract infection, site not specified Status: Acute Assessment and Plan: The patient was started on Rocephin. the patient has a history of E coli it was sensitive to Rocephin. However culture showed E coli with ESBL resistant to Rocephin patient is being treated with Cipro IV 10/16 will continue to monitor (3) Dissecting aneurysm: Status: Chronic Assessment and Plan: Appears to be stable. Patient was discharged from [facility] approximately 3 weeks ago and it was reported that the aneurysm sealed itself off. (4) Hyperlipidemia: Code(s): E78.5 - Hyperlipidemia, unspecified Status: Chronic Assessment and Plan: Continue with patient Zetia and atorvastatin (5) Congestive heart failure: Code(s): I50.9 - Heart failure, unspecified Status: Chronic Assessmen
--- NOTE | 2021-01-20 15:55 | PCPTNOTE ---
PT held due to decline in medical status and possible Hospice placement. Will follow.
--- NOTE | 2021-01-20 16:58 | PC.NURSE ---
Patient transferred to [facility] at 1700, report given to PAYAM Mishra. transferred via bed with 5L nasal cannula.
--- NOTE | 2021-01-20 17:04 | PC.NURSE ---
Received patient from IMU via bed with IMU staff. Patient settled in room. Appears anxious at intervals, moaning intermittently. O2 on per nasal cannula at 5 liters. Short of breath at rest. Denies pain. Awaiting hospice nurse.
--- NOTE | 2021-01-20 17:50 | PC.NURSE ---
[facility] hospice here to admit patient to inpatient hospice.
--- NOTE | 2021-01-20 18:02 | PC.NURSE ---
Discharged patient to hospice care.
--- NOTE | 2021-01-21 10:16 | PM.DS ---
DS: Admitting Diagnosis Admitting Diagnosis Admitting Diagnosis: Chief Complaint: Shortness of breath DS: Discharge Diagnosis Discharge Diagnosis (1) Chronic respiratory failure with hypoxia and hypercapnia: Code(s): J96.11 - Chronic respiratory failure with hypoxia; J96.12 - Chronic respiratory failure with hypercapnia Status: Chronic Assessment and Plan: The patient chronically wears oxygen at home. She is currently on a BiPAP due to the hypercapnia wean off when feasible. The patient has chronic hypoxic. She has a history of CHF and COPD. Patient recently was treated for pneumonia at [facility]. She has been in the long term for about 2-3 weeks and has been pretty much immobile. Least likely that she has a PE the patient has been on anticoagulation since she was diagnosed with AFib about a month ago. 01/20/21 14:57 01/17 patient 80-year-old female a resident of [facility], history of dissecting aortic aneurysm spontaneously healed history of atrial fibrillation anticoagulated with Eliquis, patient was brought to the emergency department with shortness of breath was found to have atrial fibrillation with RVR in emergency depart patient was started on diltiazem drip however patient remains in RVR will consult sales attendant for further recommendation. patient is also suspect of having UTI being treated with Rocephin will follow-up on urine culture and sensitivity, unfortunately patient is very poor historian. 01/18 patient has remained in atrial fibrillation patient was seen sales attendant and suspect atrial fibrillation was diagnosed while patient was at [facility] secondary to chronic lung disease and fibrosis, and her cardiac echo demonstrated right-sided ventricle dilatation, sales attendant recommending addition of digoxin as high-dose metoprolol is not controlling patient rate, will start digoxin 0.5 mg now and then continue 0.25 mg daily starting tomorrow, patient with a chronic lung disease and paralyzed right hemidiaphragm is aggravated her breathing resulting triggering atrial fibrillation with RVR, will continue to monitor patient been anticoagulated with Eliquis, with all her chronic medical problems including dissecting type B aortic dissection making challenging to control patient rate according to her sales attendant, patient is clinically stable, patient is a poor historian will continue to monitor 01/19 patient remains in atrial fibrillation rate is controlled currently on metoprolol tartrate 100 mg b.i.d. and discharged 0.25 mg daily, patient does appear somewhat short of breath most likely secondary acute on chronic diastolic dysfunction patient is being diuresed IV furosemide 40 mg b.i.d. will continue PT OT and further recommendation to follow. 01/20 today patient remains in atrial fibrillation rate is controlled however patient is quite anxious and appears her respiratory rate higher patient is not following any command and patient struggling to breathe, she is DNR, patient's son is present in the room, I spoke with the patient's son and he has agreed to discuss with hospice care and further recommendation to follow (2) UTI (urinary tract infection): Qualifiers: Urinary tract infection type: site unspecified Hematuria presence: without hematuria Qualified Code(s): N39.0 - Urinary tract infection, site not specified Code(s): N39.0 - Urinary tract infection, site not specified Status: Acute Assessment and Plan: The patient was started on Rocephin. the patient has a history of E coli it was sensitive to Rocephin. However culture showed E coli with ESBL resistant to Rocephin patient is being treated with Cipro IV 10/16 will continue to monitor (3) Dissecting aneurysm: Status: Chronic Assessment and Plan: Appears to be stable. Patient was discharged from [facility] approximately 3 weeks ago and it was reported that the aneurysm sealed itself off
== END 2021-01-20 17:58 | disposition hospice, inpatient (51) | DRG 291 ==
LOC: ANHED 09:45 → ANHIMU 12:24 → ANH2MED 01-24 13:13 → ANHIMU 01-24 13:13
PROVIDERS: Internal Medicine; Nurse Practitioner; Admitting Provider Family Medicine; Emergency Provider Emergency Medicine; PCP Internal Medicine; Visit Provider Family Medicine
DX: I11.0 Hypertensive heart disease with heart failure (principal); J96.21 Acute and chronic respiratory failure with hypoxia; J96.22 Acute and chronic respiratory failure with hypercapnia; N39.0 Urinary tract infection, site not specified; Z16.19 Resistance to other specified beta lactam antibiotics; I48.20 Chronic atrial fibrillation, unspecified; I50.33 Acute on chronic diastolic (congestive) heart failure; B96.20 Unspecified Escherichia coli [E. coli] as the cause of diseases classified elsewhere; J44.9 Chronic obstructive pulmonary disease, unspecified; E78.5 Hyperlipidemia, unspecified; I25.10 Atherosclerotic heart disease of native coronary artery without angina pectoris; J98.6 Disorders of diaphragm; I71.2 Thoracic aortic aneurysm, without rupture; Z66 Do not resuscitate; Z86.73 Personal history of transient ischemic attack (TIA), and cerebral infarction without residual deficits; Z98.42 Cataract extraction status, left eye; Z98.41 Cataract extraction status, right eye; Z99.81 Dependence on supplemental oxygen; Z79.01 Long term (current) use of anticoagulants
CPT/HCPCS: 36415; 36600; 51701; 71045; 80048; 80053; 81001; 82375; 82805; 83050; 83605; 83735; 83880; 84439; 84443; 85025; 85027; 85610; 85730; 87040; 87077; 87086; 87088; 87186; 92526; 92610; 92611; 93005; 93306; 94002; 94003; 94640; 96365; 96375; 96376; 97110; 97161; 97165; 97530; 97535; 99285; A9270; G0378; J0696; J0744; J1940; J2060; J2930; J3480

== ENCOUNTER 2021-01-20 17:40 | HOS | payer OTHER, MEDICARE, SELFPAY ==
[2021-01-20 18:20] VITALS: BMI 29.2
[2021-01-20] MEDS: LORazepam INJ (*CRX) 2 MG/ML VIAL 1 MG IV PUSH (18:57)
--- NOTE | 2021-01-20 19:00 | PM.IMHP ---
H&P: HPI History of Present Illness Date/Time: 01/20/21 19:00 Chief Complaint: uncontrolled dyspnea and restlessness Narrative: 80 y/o f admitted to acute care 01/16 for a/c HFpEF and UTI. Was euvolemic after diuresis but respiratory failure and confusion worsened. She was restless and breathing up to 40 times per minute. Because of her underlying comorbidities and her wishes expressed earlier this year that she did not want life support or cpr, her children opted for comfort care with inpatient hospice. Six months ago, she was living independently in her own home. Family assisted with laundry, cleaning, shopping. She was continent and A/o x4. She was in SNF after episode of fall due to sepsis that was treated at [facility]. 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 Essential hypertension Family history of aortic dissection Hematuria Hx of ventricular septal defect Hyperlipidemia TIA (transient ischemic attack) Surgical History Surgical History H/O bilateral cataract extraction H/O tubal ligation History of reduction surgery of right breast History of tonsillectomy Family History Family History Father Dissecting aneurysm Social History Social History (Updated 01/20/21 @ 19:25 by Davey Go MD) Social History: Lived at home until about 2 mo ago. Was in SNF after that. She has 2 daughters and a son. None has POA, but they are all in agreement with their mother's wishes for comfort care. . 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 Smoking status: Never smoker Alcohol intake: never Substance use: never Occupation/Education: retired Gender identity (if verbalized by the patient): Female Spiritual care concerns: No Meds Home Medications and Allergies Home Medications Medication Instructions Recorded Confirmed Type furosemide 20 mg tablet 20 mg PO DAILY #90 tablet 01/01/20 01/20/21 Rx albuterol sulfate 90 mcg/actuation 2 puff INHALATION Q4-6H PRN #8.5 gm 07/15/20 01/20/21 Rx aerosol inhaler amlodipine 5 mg tablet 5 mg PO DAILY #90 tablet 07/15/20 01/20/21 Rx atorvastatin 40 mg tablet 40 mg PO DAILY #90 tablet 07/15/20 01/20/21 Rx fluticasone propionate 50 2 spray NASAL DAILY #18.2 ml 07/15/20 01/20/21 Rx mcg/actuation nasal spray,suspension montelukast 10 mg tablet 10 mg PO DAILY #90 tablet 07/15/20 01/20/21 Rx apixaban 5 mg PO BID 01/16/21 01/20/21 History ezetimibe 10 mg PO DAILY 01/16/21 01/20/21 History ytjzpgnigtm-dqgfyqgfs-sedpdndb 1 inh INHALATION DAILY 01/16/21 01/20/21 History [Trelegy Ellipta] metoprolol tartrate 100 mg PO Q12H 01/16/21 01/20/21 History Allergies Allergy/AdvReac Type Severity Reaction Status Date / Time codeine AdvReac Unknown vomiting Verified 01/20/21 18:31 meperidine AdvReac Unknown vomiting Verified 01/20/21 18:31 Assessment and Plan Assessment and plan (1) Acute on chronic respiratory failure with hypoxia: Code(s): J96.21 - Acute and chronic respiratory failure with hypoxia Status: Acute Assessment and Plan: Meets GIP criteria due to requiring continuous IV narcotics for uncontrolled dyspnea and restlessness Remainder of palliative regimen as ordered (2) Palliative care by specialist: Code(s): Z51.5 - Encounter for palliative care Status: Acute (3) Acute on chronic diastolic (congestive) heart failure: Code(s): I50.33 - Acute on chronic diastolic (congestive) heart failure Status
[2021-01-20] MEDS: MORPHINE SULFATE INJ (*CRX) 50 MG in SODIUM CHLORIDE 0.9% IV 95 ML IV CONT (19:03)
[2021-01-20 20:00] VITALS: O2SAT 100
[2021-01-20 21:18] VITALS: BP 136/82; PULSE 110; RESP 24; TEMP 36.4; O2SAT 100
[2021-01-21] MEDS: LORazepam INJ (*CRX) 2 MG/ML VIAL 1 MG IV PUSH ×2 (04:09→07:55)
[2021-01-21 15:00] VITALS: BP 114/51; PULSE 110; RESP 14; TEMP 36.7; O2SAT 100
--- NOTE | 2021-01-21 16:38 | PM.IMPN ---
Progress Note: A&P Assessment and Plan (1) Acute on chronic respiratory failure with hypoxia: Code(s): J96.21 - Acute and chronic respiratory failure with hypoxia Status: Acute Assessment and Plan: Meets GIP criteria due to requiring continuous IV narcotics for uncontrolled dyspnea and restlessness Remainder of palliative regimen as ordered (2) Palliative care by specialist: Code(s): Z51.5 - Encounter for palliative care Status: Acute (3) Acute on chronic diastolic (congestive) heart failure: Code(s): I50.33 - Acute on chronic diastolic (congestive) heart failure Status: Acute (4) Dissecting aneurysm: Status: Chronic (5) UTI (urinary tract infection): Qualifiers: Urinary tract infection type: site unspecified Hematuria presence: without hematuria Qualified Code(s): N39.0 - Urinary tract infection, site not specified Code(s): N39.0 - Urinary tract infection, site not specified Status: Acute (6) Atrial fibrillation with RVR: Code(s): I48.91 - Unspecified atrial fibrillation Status: Chronic (7) Essential hypertension: Code(s): I10 - Essential (primary) hypertension Status: Chronic (8) Fibrosing mediastinitis: Code(s): J98.51 - Mediastinitis Status: Acute (9) Asthma: Qualifiers: Asthma severity: unspecified severity Asthma persistence: unspecified Asthma complication type: unspecified Qualified Code(s): J45.909 - Unspecified asthma, uncomplicated Code(s): J45.909 - Unspecified asthma, uncomplicated Status: Acute (10) ASHD (arteriosclerotic heart disease): Code(s): I25.10 - Atherosclerotic heart disease of [place] coronary artery without angina pectoris Status: Acute (11) Anemia, unspecified: Qualifiers: Anemia type: unspecified type Qualified Code(s): D64.9 - Anemia, unspecified Code(s): D64.9 - Anemia, unspecified Status: Acute (12) Chronic obstructive pulmonary disease (COPD): Qualifiers: COPD type: unspecified COPD Qualified Code(s): J44.9 - Chronic obstructive pulmonary disease, unspecified Code(s): J44.9 - Chronic obstructive pulmonary disease, unspecified Status: Acute Subjective Date/time seen: 01/21/21 16:38 Interval history: 01/21: Comfortable since morphine drip was increased to 1mg/hr. Son and daughter at bedside. Exam Narrative: Exam Narrative: HEENT: normocephalic NECK: No JVD CHEST: Clear to auscultation. Normal effort. HEART: NL S1/S2, regular, no murmur ABDOMEN: BS hypoactive, soft, nontender, no mass, no bruits EXTREMITIES: No cyanosis, edema, or clubbing NEUROLOGIC: CN intact and symmetric to inspection. MUSCULOSKELETAL: Tone and strength symmetric. PSYCH: Sleeping, w/o response to verbal or tactile stimuli. Objective Data Vital Signs Vital Signs: Vital Signs - 24 hr 01/20/21 20:00 01/20/21 21:18 01/21/21 15:00 Temperature 97.5 F L 98.1 F Pulse Rate 110 H 110 H Respiratory Rate 24 H 14 Blood Pressure 136/82 114/51 L Pulse Oximetry 100 100 100 Intake/Output Intake/Output: Intake & Output 01/18/21 01/19/21 01/20/21 01/21/21 23:59 23:59 23:59 23:59 Intake Total 0 Output Total 300 Balance -300 Meds/Results Medications: Active Medications Generic Name Dose Route Start Last Admin Trade Name Freq PRN Reason Stop Dose Admin Acetaminophen 650 mg 01/20/21 18:38 Acetaminophen 650 Mg Suppository RECTAL Q4HR PRN Fever Artificial Tears 1 drop 01/20/21 18:40 Artificial Tears Op Soln 15 Ml Bottle EACH EYE QID PRN Dry Eye(s) Bisacodyl 10 mg 01/20/21 18:39 Bisacodyl 10 Mg Suppository RECTAL QAM PRN Constipation Glycopyrrolate 0.1 mg 01/20/21 18:40 Glycopyrrolate Inj (*Sp) 0.2 Mg/Ml Vial IV PUSH Q4HR PRN Secretions Morphine Sulfate 50 mg/ Sodium 100 mls @ 2 mls/hr 01/20/21 18:45 01/21/21 12:
[2021-01-21] MEDS: MORPHINE SULFATE INJ (*CRX) 50 MG in SODIUM CHLORIDE 0.9% IV 95 ML IV CONT (18:37)
[2021-01-21 20:00] VITALS: BP 122/55; PULSE 104; RESP 20; TEMP 36.4; O2SAT 100
[2021-01-21 20:25] VITALS: O2SAT 100
--- NOTE | 2021-01-22 14:04 | PM.IMPN ---
Progress Note: A&P Assessment and Plan (1) Acute on chronic respiratory failure with hypoxia: Code(s): J96.21 - Acute and chronic respiratory failure with hypoxia Status: Acute Assessment and Plan: Meets GIP criteria due to requiring continuous IV narcotics for uncontrolled dyspnea and restlessness Remainder of palliative regimen as ordered (2) Palliative care by specialist: Code(s): Z51.5 - Encounter for palliative care Status: Acute (3) Acute on chronic diastolic (congestive) heart failure: Code(s): I50.33 - Acute on chronic diastolic (congestive) heart failure Status: Acute (4) Dissecting aneurysm: Status: Chronic (5) UTI (urinary tract infection): Qualifiers: Urinary tract infection type: site unspecified Hematuria presence: without hematuria Qualified Code(s): N39.0 - Urinary tract infection, site not specified Code(s): N39.0 - Urinary tract infection, site not specified Status: Acute (6) Atrial fibrillation with RVR: Code(s): I48.91 - Unspecified atrial fibrillation Status: Chronic (7) Essential hypertension: Code(s): I10 - Essential (primary) hypertension Status: Chronic (8) Fibrosing mediastinitis: Code(s): J98.51 - Mediastinitis Status: Acute (9) Asthma: Qualifiers: Asthma severity: unspecified severity Asthma persistence: unspecified Asthma complication type: unspecified Qualified Code(s): J45.909 - Unspecified asthma, uncomplicated Code(s): J45.909 - Unspecified asthma, uncomplicated Status: Acute (10) ASHD (arteriosclerotic heart disease): Code(s): I25.10 - Atherosclerotic heart disease of [place] coronary artery without angina pectoris Status: Acute (11) Anemia, unspecified: Qualifiers: Anemia type: unspecified type Qualified Code(s): D64.9 - Anemia, unspecified Code(s): D64.9 - Anemia, unspecified Status: Acute (12) Chronic obstructive pulmonary disease (COPD): Qualifiers: COPD type: unspecified COPD Qualified Code(s): J44.9 - Chronic obstructive pulmonary disease, unspecified Code(s): J44.9 - Chronic obstructive pulmonary disease, unspecified Status: Acute Subjective Date/time seen: 01/22/21 14:04 Interval history: 01/22: Comfortable on morphine drip at 1mg/hr. Two daughters at bedside. Review of Systems Review of Systems: ROS unobtainable: Yes unobtainable due to medical condition Exam Narrative: Exam Narrative: HEENT: normocephalic NECK: No JVD CHEST: Clear to auscultation. Normal effort. HEART: NL S1/S2, regular, no murmur ABDOMEN: BS hypoactive, soft, nontender, no mass, no bruits EXTREMITIES: No cyanosis, edema, or clubbing NEUROLOGIC: CN intact and symmetric to inspection. MUSCULOSKELETAL: Tone and strength symmetric. PSYCH: Sleeping, w/o response to verbal or tactile stimuli. Objective Data Vital Signs Vital Signs: Vital Signs - 24 hr 01/21/21 15:00 01/21/21 20:00 01/21/21 20:25 Temperature 98.1 F 97.5 F L Pulse Rate 110 H 104 H Respiratory Rate 14 20 Blood Pressure 114/51 L 122/55 L Pulse Oximetry 100 100 100 Intake/Output Intake/Output: Intake & Output 01/19/21 01/20/21 01/21/21 01/22/21 23:59 23:59 23:59 23:59 Intake Total 30 Output Total 650 Balance -620 Meds/Results Medications: Active Medications Generic Name Dose Route Start Last Admin Trade Name Freq PRN Reason Stop Dose Admin Acetaminophen 650 mg 01/20/21 18:38 Acetaminophen 650 Mg Suppository RECTAL Q4HR PRN Fever Artificial Tears 1 drop 01/20/21 18:40 Artificial Tears Op Soln 15 Ml Bottle EACH EYE QID PRN Dry Eye(s) Bisacodyl 10 mg 01/20/21 18:39 Bisacodyl 10 Mg Suppository RECTAL QAM PRN Constipation Glycopyrrolate 0.1 mg 01/20/21 18:40 Glycopyrrolate Inj (*Sp) 0.2 Mg/Ml Vial IV PUSH Q4HR PRN Secretions
[2021-01-22] MEDS: MORPHINE SULFATE INJ (*CRX) 50 MG in SODIUM CHLORIDE 0.9% IV 95 ML IV CONT (18:12)
[2021-01-22 20:30] VITALS: O2SAT 88
[2021-01-22 20:35] VITALS: BP 72/34; PULSE 87; RESP 12; TEMP 35.6; O2SAT 88
[2021-01-23 07:50] VITALS: PULSE 154; O2SAT 83
--- NOTE | 2021-01-23 10:22 | PM.DDS ---
Discharge Sum: Prov Provider Primary care physician: Alden Mackey DO Admitting provider: Davey Go MD Discharge Sum: Diag Contributing Factors (1) Acute on chronic respiratory failure with hypoxia: (2) Acute on chronic diastolic (congestive) heart failure: (3) Dissecting aneurysm: (4) UTI (urinary tract infection): (5) Atrial fibrillation with RVR: (6) Essential hypertension: (7) Fibrosing mediastinitis: (8) Asthma: (9) ASHD (arteriosclerotic heart disease): (10) Anemia, unspecified: (11) Chronic obstructive pulmonary disease (COPD): Discharge Sum: Summary Date and Time Date of admission: 01/20/21 17:59 Summary Details: Admitted inpatient hospice for respiratory failure and uncontrolled dyspnea. Medications were titrated to comfort. She peacefully. Additional Data Attending physician: Davey Go MD
== END 2021-01-23 09:10 | disposition expired | DRG 951 ==
PROVIDERS: Admitting Provider Internal Medicine; PCP Internal Medicine; Visit Provider Internal Medicine
DX: Z51.5 Encounter for palliative care (principal); I50.33 Acute on chronic diastolic (congestive) heart failure; J96.21 Acute and chronic respiratory failure with hypoxia; J98.51 Mediastinitis; I77.79 Dissection of other specified artery; N39.0 Urinary tract infection, site not specified; I48.20 Chronic atrial fibrillation, unspecified; I11.0 Hypertensive heart disease with heart failure; J45.909 Unspecified asthma, uncomplicated; I72.9 Aneurysm of unspecified site; I25.10 Atherosclerotic heart disease of native coronary artery without angina pectoris; D64.9 Anemia, unspecified; J44.9 Chronic obstructive pulmonary disease, unspecified
CPT/HCPCS: A9270; J2060; J2270